=== PATIENT | male | born 1945 | race Caucasian/White ===

== ENCOUNTER 2017-02-03 18:43 | Inpatient (IN) | payer MEDICARE, OTHER ==
[~2017-02-03] VITALS: Ht 175.3 cm; Wt 70.2 kg
[2017-02-03 22:25] VITALS: BP 168/90; PULSE 76; RESP 18; TEMP 97.6; O2SAT 99
[2017-02-03] MEDS ORDERED: ALUMINUM/MAGNESIUM/SIMETH 30 ML CUP PO PRN (23:30)
[2017-02-03] MEDS ORDERED: ACETAMINOPHEN 325 MG TAB PO PRN (23:30)
[2017-02-03] MEDS ORDERED: LORazepam 2 MG/ML VIAL - age > 65 yrs IM PRN (23:30)
[2017-02-03] MEDS ORDERED: diphenhydrAMINE HCL 50 MG/ML VIAL IM PRN (23:30)
[2017-02-03] MEDS ORDERED: MAGNESIUM HYDROXIDE SUSP 30 ML CUP PO PRN (23:30)
[2017-02-03] MEDS ORDERED: LORazepam 0.5 MG TAB age > 65 yrs PO PRN (23:30)
[2017-02-03] MEDS ORDERED: diphenhydrAMINE HCL 25 MG CAP PO PRN ×2 (23:30)
[2017-02-03] MEDS ORDERED: diphenhydrAMINE HCL 50 MG/ML VIAL - HS PRN IM (23:30)
[2017-02-04 05:33] VITALS: BP 162/78; PULSE 77; RESP 18; TEMP 97.8; O2SAT 98
[2017-02-04 08:23] LABS: ANION GAP 5 MEQ/L (5-15); BICARBONATE 29.7 MEQ/L (21.0-32.0); BLOOD UREA NITROGEN 17 MG/DL (7-18); CHLORIDE 105 MEQ/L (98-107); GLOMERULAR FILTRATION RATE 121 ML/MIN (>89); SODIUM (NA) 140 MEQ/L (136-145)
[2017-02-04 08:27] LABS: HDL CHOLESTEROL 64.4 MG/DL (40.0-60.0); LDL CHOLESTEROL 78 MG/DL (0-99)
[2017-02-04] MEDS ORDERED: NICOTINE 21 MG/24 HR PATCH T-DERMAL SCH (09:00)
--- NOTE | 2017-02-04 10:36 | HHI.HP ---
Provisional Diagnosis Admission Date Feb 03, 2017 at 22:25 [place] I. 1. Major depressive disorder, single episode, severe with psychotic features Rule out depression due to general medical condition [place] II. Deferred Certification of Person's Competence To Provide Express and Informed Consent I have personally examined Jonathan Lopez , a person being served at [facility] on, Feb 04, 2017 10:35. Express and informed consent means consent voluntarily given in writing, by a competent person, after sufficient explanation and disclosure of the subject matter involved to enable the person to make a knowing and willful decision without any element of force, fraud, deceit, duress, or other form of constraint or coercion. This person is 18 years of age or older, is not now known to be incompetent to consent to treatment with a guardian advocate, and does not have a health care surrogate or proxy currently making medical treatment decisions. I have found this person to be one of the following: [x] Competent to provide express and informed consent, as defined above, for voluntary admission to this facility and is competent to provide express and informed consent for treatment. He/she has the consistent capacity to make well reasoned, willful, and knowing decisions concerning his or her medical or mental health treatment. The person fully and consistently understands the purpose of the admission for examination/placement and is fully capable of personally exercising all rights assured [place] Incompetent to provide express and informed consent to voluntary admission, and this is incompetent to provide express and informed consent to treatment. The person must be transferred to involuntary status and a petition for a guardian advocate filed with the Circuit Court. [] Refusing to provide express and informed consent to voluntary admission but is competent to provide express and informed consent for treatment. The person must be discharged or transferred to involuntary status. Form shall be completed within 24 hours of a person's arrival at the receiving facility and filed in the clinical record of each person: 1. Admitted on a voluntary basis 2. Permitted to provide express and informed consent to his/her own treatment 3. Allowed to transfer from involuntary to voluntary status 4. Prior to permitting a person to consent to his or her own treatment after having been previously found incompetent to consent to treatment. History of Present Illness Capacity: Has Capacity Psych Chief Complaint: Depression HPI Mr. Lopez is a 72-year-old male with no reported past psychiatric history who presents in transfer from [facility] under a [place] act. Documentation from outside hospital reviewed. From the ED providers note, it appears that the patient's daughter is concerned that the patient is having "a mental breakdown, he doesn't want to live anymore and he doesn't want my mom to live anymore." There is also allegation that the patient has been withholding medications from himself and his and not allowing caregivers into the home. Reviewing our electronic medical record, it appears this is patient's first visit to [place]. Patient seen and examined with counselor. Chart reviewed. Case discussed with nursing staff. On my examination today, patient reports that his fell ill with a stroke in July of this year. He notes that she had been having some premonitory symptoms before actually having her stroke, and he took her to doctors to try to figure out why she was having these symptoms without success. He says that he feels extremely guilty that he did not do more to prevent her stroke. The patient denies a history of psychiatric illness otherwise but admits that since the onset of her illness he has been feeling more depressed. He has been feeling hopeless and worthless. He has an experiencing poor sleep and poor appetite. He admits to some passive thoughts of and occasional suicidal ideation without specific plan. He does admit to entertaining the thought of hastening his own demise as well as his 's demise, but says that he simply pushes through when he has these thoughts. No hypomanic or manic symptoms currently, nor can I elicit any history of these. He denies any audiovisual hallucinations. He does describe some subtle paranoia when asked and also says that he believes that the television is "exaggerating things, calling things that are ugly pretty." There is significant mobilization of affect on this point, and he says that he does not like to discuss his psychotic symptoms. The remainder of the psychiatric ROS is negative. Past psychiatric history: The patient denies history of psychiatric diagnosis. He says that he underwent psychiatric assessment in November at his daughter's past but does not know if he was given a diagnosis. He denies any history of psychiatric admissions. He denies any history of suicide attempts. He denies any history of nonsuicidal self-injurious behavior. I do note from the medication reconciliation form from outside hospital that the patient has been on Paxil 10 mg daily. Family history: The patient reports that his mother had schizophrenia. He denies any family history of substance use disorder or suicide. Chemical dependency history: The patient endorses denies a history of abuse of drugs or alcohol. Social history: The patient has been 47 years. His daughter lives in [facility]. He has 2 grandchildren. 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 He served 4-1/2 years in the [employer] from [id number] but never saw combat. He had an honorable discharge. He denies any history of abuse or neglect. He denies any legal issues. He believes in God. No reported access to guns or firearms. Review of Systems ROS Limitations: Psychotic Except as stated in HPI: all other systems reviewed are Neg Past Psych History Psychological trauma history No reported trauma history to me Violence risk - others (6 mos) Concern for elevated risk due to neglect of 's care, see above Violence risk - self (6 mos) Concern for elevated risk. Depressed with suicidal ideation. Substance Abuse History Drugs/Alcohol past 12 months See above Past Family Social History Coded Allergies: No Known Allergies (Unverified , 02/03/17) Past Medical History Includes a history of hypertension Current Medications Medications (Trade) Dose Ordered Sig/Mathew Route Start Time Stop Time Status Last Admin (Ativan) 0.5 mg Q12H PRN PO 02/03/17 23:30 (Ativan Inj) 0.5 mg Q12H PRN IM 02/03/17 23:30 (Benadryl) 25 mg Q6H PRN PO 02/03/17 23:30 (Benadryl Inj) 25 mg Q6H PRN IM 02/03/17 23:30 (Benadryl) 25 mg HS PRN PO 02/03/17 23:30 (Benadryl Inj) 25 mg HS PRN IM 02/03/17 23:30 (Tylenol) 650 mg Q4H PRN PO 02/03/17 23:30 (Milk Of Magnesia Liq) 30 ml DAILY PRN PO 02/03/17 23:30 (Mag-Al Plus Susp Liq) 30 ml Q6H PRN PO 02/03/17 23:30 Patient's Strengths (min. 2) In a monitored setting. Verbally fluent. Physical Exam Physical examination completed by ED provider at outside hospital. On my examination today, the patient appears to be in no acute physical distress. No motor abnormalities noted. Labs and vitals reviewed: Vital Signs Vital Signs Date Time Temp Pulse Resp B/P (MAP) Pulse Ox O2 Delivery O2 Flow Rate FiO2 02/04/17 05:33 97.8 77 18 162/78 (106) 98 I/O 02/04/17 02/04/17 02/05/17 08:00 16:00 00:00 Intake Total 360 ml Balance 360 ml Lab Results Test 02/04/17 07:11 Blood Urea Nitrogen 17 MG/DL Creatinine 0.65 MG/DL Random Glucose 86 MG/DL Calcium Level 9.0 MG/DL Sodium Level 140 MEQ/L Potassium Level 4.0 MEQ/L Chloride Level 105 MEQ/L Carbon Dioxide Level 29.7 MEQ/L Anion Gap 5 MEQ/L Estimat Glomerular Filtration Rate 121 ML/MIN Triglycerides Level 100 MG/DL Cholesterol Level 162 MG/DL LDL Cholesterol 78 MG/DL HDL Cholesterol 64.4 MG/DL Cholesterol/HDL Ratio 2.51 RATIO Labs from outside hospital reviewed: CBC unremarkable Alcohol <10 CMP unremarkable UDS negative UA bland CXR no acute process TSH wnl Mental Status Examination Appearance: Appropriate, Other (in hospital attire) Consciousness: Alert Orientation: Person, Place, Date/Time (month/year) Motor Activity: Other (no motor abnormalities noted) Speech: Unremarkable Language: Adequate Fund of Knowledge: Adequate Attention and Concentration: Easily Distracted Memory: Unremarkable (registration 3 out of 3, recall 3 out of 3 at 3 minutes. Able to name 2 items and repeat a phrase. Able to spell world forwards and backwards without errors.) Mood: Other (depressed) Affect: Blunt Thought Process & Associations: Linear (somewhat slowed) Hallucination Type: None Delusion Type: Paranoid, Other (ideas of reference) Suicidal Ideation: Yes Suicidal Plan: No Suicidal Intention: No Homicidal Ideation: Yes (see above re: ) Homicidal Plan: No Homicidal Intention: No Insight: Poor Judgment: Poor Assessment & Plan Problem List: (1) Major depressive disorder, single episode, severe with psychotic features ICD Codes: F32.3 - Major depressive disorder, single episode, severe with psychotic features Assessment & Plan This is a 72-year-old male with psychiatric history as detailed above who presents in transfer from outside hospital under a [place] act. On my examination today, the patient describes depressive symptomatology with its onset following his 's stroke. He also endorses some psychotic symptoms, and I am concerned that he is experiencing a late-life psychotic depression, although general medical causes for this presentation will need to be closely ruled out. Particularly concerning in his presentation is the patient's report that he was thinking about hastening not only his own demise but also that of his . Patient requires psychiatric hospitalization for safety, observation and stabilization. Admit inpatient. Voluntary status. Check vitamin B12, vitamin D, RPR, ammonia and MRI of the brain with and without contrast to investigate potential medical causes for patient's current psychiatric symptoms. Titrate Paxil to 20 mg daily for mood. For symptoms of psychosis add Risperdal 0.25 mg twice daily. I discussed treatments and alternatives for patient's symptoms with the patient including the possibility of ECT for psychotic depression. Continue patient's antihypertensives, except that I have substituted lisinopril for benazepril as the former is on our formulary. Substitute Protonix for omeprazole. Consult to the hospitalist. PT/OT consult. Falls precautions. Vitals every shift. Counselor to see and obtain collateral. 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 Disposition planning. Estimated length of stay: 7-9 days. Discharge Planning Pending psychiatric stabilization Request HC Surrog/Guard Advoc?: No Roshan Muniz MD Feb 04, 2017 10:36
[2017-02-04] MEDS: ASPIRIN 325 MG TAB PO SCH (12:34)
[2017-02-04] MEDS: PANTOPRAZOLE SOD 40 MG DELAYED RELEASE TAB PO SCH (12:34)
[2017-02-04] MEDS: PARoxetine HCL 20 MG TAB PO SCH (12:34)
[2017-02-04] MEDS: LISINOPRIL 20 MG TAB PO SCH (12:35)
--- NOTE | 2017-02-04 16:11 | EKG ---
Date Performed: 02/04/2017 Time Performed: 12:39:15 PTAGE: 72 years EKG: Sinus rhythm WITH RARE VENTRICULAR PREMATURE COMPLEXES BORDERLINE ECG NO PREVIOUS TRACING DOCTOR: Jozef Roberto Interpretating Date/Time 02/04/2017 16:10:17
--- NOTE | 2017-02-04 16:38 | PD.CONS ---
HPI Service [facility] Hospitalists Consult Requested By Dr. Muniz Reason for Consult Hypertension Primary Care Physician Unknown Diagnoses: (1) Hypertension (2) Major depressive disorder, single episode, severe with psychotic features History of Present Illness Written by Rylee Cloud, acting as scribe for Dr. Singletary on 02/04/17 at 17:48. Mr. Lopez is a 72-year-old male patient with a known medical history of hypertension and depression who is in the psychiatry unit under [place] Act with depression and suicidal ideation. Hospitalist has been consulted for medical management of hypertension. Patient seen and examined in the psychiatry unit, sitting up in chair comfortably. States that he has a history of hypertension but has not checked it in a while and has not taken his medications, for no particular reason. Patient denies any recent illness including fever, chills, cough, shortness of breath, headache, chest pain, abdominal pain, n/v/d or dysuria. Review of Systems Constitutional: DENIES: Fever, Chills Endocrine: DENIES: Polydipsia, Polyuria Respiratory: DENIES: Cough, Shortness of breath Cardiovascular: DENIES: Chest pain, Dyspnea on Exertion Gastrointestinal: DENIES: Abdominal pain, Black stools, Constipation, Diarrhea , Nausea, Vomiting Psychiatric: COMPLAINS OF: Anxiety, Mood changes, Depression, Suicidal Ideation Except as stated in HPI: all other systems reviewed are Neg Past Family Social History Allergies: Coded Allergies: No Known Allergies (Unverified , 02/03/17) Past Medical History Hypertension Depression Past Surgical History Left hip replacement Back surgery Bilateral carpal tunnel Reported Medications Has not been taking them. Active Ordered Medications Current Medications Medications (Trade) Dose Ordered Sig/Mathew Route Start Time Stop Time Status Last Admin (Ativan) 0.5 mg Q12H PRN PO 02/03/17 23:30 (Ativan Inj) 0.5 mg Q12H PRN IM 02/03/17 23:30 (Benadryl) 25 mg Q6H PRN PO 02/03/17 23:30 (Benadryl Inj) 25 mg Q6H PRN IM 02/03/17 23:30 (Benadryl) 25 mg HS PRN PO 02/03/17 23:30 (Benadryl Inj) 25 mg HS PRN IM 02/03/17 23:30 (Tylenol) 650 mg Q4H PRN PO 02/03/17 23:30 (Milk Of Magnesia Liq) 30 ml DAILY PRN PO 02/03/17 23:30 (Mag-Al Plus Susp Liq) 30 ml Q6H PRN PO 02/03/17 23:30 (Paxil) 20 mg DAILY PO 02/04/17 11:00 02/04/17 12:34 (Norvasc) 10 mg DAILY PO 02/04/17 11:00 02/04/17 12:34 (Aspirin) 325 mg DAILY PO 02/04/17 11:00 02/04/17 12:34 (Protonix) 40 mg DAILY PO 02/04/17 11:00 02/04/17 12:34 (Coreg) 3.125 mg Q12HR PO 02/04/17 21:00 (Prinivil) 20 mg DAILY PO 02/04/17 11:00 02/04/17 12:35 (risperDAL) 0.25 mg Q12HR PO 02/04/17 21:00 Family History Maternal and paternal medical history significant for hypertension. Social History Denies any tobacco abuse. Denies any alcohol use. Denies any illicit drug use. Physical Exam Vital Signs Vital Signs Date Time Temp Pulse Resp B/P (MAP) Pulse Ox O2 Delivery O2 Flow Rate FiO2 02/04/17 05:33 97.8 77 18 162/78 (106) 98 02/03/17 22:25 97.6 76 18 168/90 (116) 99 Physical Exam GENERAL: This is a well-nourished, well-developed patient, sitting up in chair in no apparent distress. SKIN: No rashes, ecchymoses or lesions. Warm and dry. HEENT: Atraumatic. Normocephalic. Pupils equal round and reactive. Extraocular motions intact. No scleral icterus. No injection or drainage. Nose without bleeding. Airway patent. NECK: Trachea midline. No JVD. Supple. CARDIOVASCULAR: Regular rate and rhythm without murmurs, gallops, or rubs. RESPIRATORY: Clear to auscultation. Breath sounds equal bilaterally. No wheezes , rales, or rhonchi. GASTROINTESTINAL: Abdomen soft, non-tender, nondistended. No guarding. MUSCULOSKELETAL: Extremities without clubbing, cyanosis, or edema. No joint tenderness, effusion, or edema noted. NEUROLOGICAL: Awake and alert. Cranial nerves II through XII intact. Motor and sensory grossly within normal limits. Five out of 5 muscle strength in all muscle groups. Normal speech. Laboratory Laboratory Tests Test 02/04/17 07:11 02/04/17 14:00 Blood Urea Nitrogen 17 Creatinine 0.65 Random Glucose 86 Calcium Level 9.0 Sodium Level 140 Potassium Level 4.0 Chloride Level 105 Carbon Dioxide Level 29.7 Anion Gap 5 Estimat Glomerular Filtration Rate 121 Triglycerides Level 100 Cholesterol Level 162 LDL Cholesterol 78 HDL Cholesterol 64.4 Cholesterol/HDL Ratio 2.51 Ammonia 26 Vitamin B12 Level 686 25-Hydroxy Vitamin D Total 33.0 Result Diagram: 02/04/17 0711 Assessment and Plan Assessment and Plan Mr. Lopez is a 72-year-old male patient with a known medical history of hypertension and depression who is in the psychiatry unit under [employer] Act with depression and suicidal ideation. Hospitalist has been consulted for medical management of hypertension. Major depressive disorder - Management per psychiatry team. - Continue Paxil. - Primary team ordered for MRI brain. Follow results. Hypertension: Systolic BP's in the 160's. Restart home Lisinopril. Add Carvedilol and Norvasc. Continue aspirin. Monitor BP trends closely. EKG reviewed, NSR, no ischemic changes noted, no arrhythmias. GI Prophylaxis: Protonix. Labs reviewed, BMP unremarkable. Ammonia WNL. Vitamin B12 and D WNL. Thank you for this consult, will follow with you. This note was transcribed by scribe [[email or web address]]. I, Dr. Noelle Singletary personally performed the history, physical exam, and medical decision making; and confirmed the accuracy of the information in the transcribed note. Authenticated by Dr. Noelle Singletary on 02/04/17 at 17:48. Rylee Cloud Feb 04, 2017 16:38 Noelle Singletary MD Feb 04, 2017 23:48
[2017-02-04 17:20] LABS: HEMOGLOBIN A1b 0.6 %; HEMOGLOBIN Ao 86.5 %; HEMOGLOBIN F 1.3 %; HEMOGLOBIN LA1C 1.7 %; HEMOGLOBIN P3 3.4 %
[2017-02-04 18:00] VITALS: BP 122/76; PULSE 78; RESP 16; TEMP 97.6; O2SAT 97
[2017-02-04 19:43] VITALS: BP 130/78; PULSE 81; RESP 17; O2SAT 97
[2017-02-04] MEDS ORDERED: REMOVE OLD NICOTINE PATCH T-DERMAL SCH (21:00)
[2017-02-04] MEDS: CARVEDILOL 3.125 MG TAB PO SCH (21:02)
[2017-02-04] MEDS: risperiDONE 0.25 MG TAB PO SCH (21:02)
[2017-02-05 06:03] VITALS: BP 115/71; PULSE 77; RESP 18; TEMP 97.3; O2SAT 98
[2017-02-05] MEDS: CARVEDILOL 3.125 MG TAB PO SCH ×2 (09:30→21:00)
[2017-02-05] MEDS: LISINOPRIL 20 MG TAB PO SCH (09:30)
[2017-02-05] MEDS: risperiDONE 0.25 MG TAB PO SCH ×2 (09:30→21:05)
[2017-02-05] MEDS: PARoxetine HCL 20 MG TAB PO SCH (09:30)
[2017-02-05] MEDS: ASPIRIN 325 MG TAB PO SCH (09:30)
[2017-02-05] MEDS: PANTOPRAZOLE SOD 40 MG DELAYED RELEASE TAB PO SCH (09:30)
--- NOTE | 2017-02-05 11:33 | HHI.PYPN ---
Subjective Remarks Patient seen today in his room with counselor sylvia. Chart reviewed. Patient compliant medication. Patient continues tearful and depressed today. Continues to focus on his feelings of guilt related to the situation with his 's stroke or need for care and his difficulty with providing what he feels she needs. He states today that he would take the suicide pill if offered. He denies voices with this. Though he is somewhat vigilant. For now continue treatment no change. Will transfer patient 2600. I feel he would benefit from the structure in the milieu Chief Complaint: Depression Review of Systems Except as stated in HPI: all other systems reviewed are Neg Mental Status Examination Appearance: Appropriate, Other (in hospital attire) Consciousness: Alert Orientation: Person, Place, Date/Time (month/year) Motor Activity: Other (no motor abnormalities noted) Speech: Unremarkable Language: Adequate Fund of Knowledge: Adequate Attention and Concentration: Easily Distracted Memory: Unremarkable (registration 3 out of 3, recall 3 out of 3 at 3 minutes. Able to name 2 items and repeat a phrase. Able to spell world forwards and backwards without errors.) Mood: Other (depressed) Affect: Blunt Thought Process & Associations: Linear (somewhat slowed) Hallucination Type: None Delusion Type: Paranoid, Other (ideas of reference) Suicidal Ideation: Yes Suicidal Plan: No Suicidal Intention: No Homicidal Ideation: Yes (see above re: ) Homicidal Plan: No Homicidal Intention: No Insight: Poor Judgment: Poor Results Labs Test 02/04/17 14:00 Ammonia 26 MCMOL/L Vitamin B12 Level 686 PG/ML 25-Hydroxy Vitamin D Total 33.0 ng/ML Rapid Plasma Reagin NON-REACTIVE Vitals/IOs Vital Signs Date Time Temp Pulse Resp B/P (MAP) Pulse Ox O2 Delivery O2 Flow Rate FiO2 02/05/17 06:03 97.3 77 18 115/71 (86) 98 Intake and Output 02/05/17 02/05/17 02/06/17 08:00 16:00 00:00 Intake Total 240 ml Balance 240 ml Assessment & Plan Problem List: (1) Major depressive disorder, single episode, severe with psychotic features ICD Codes: F32.3 - Major depressive disorder, single episode, severe with psychotic features Assessment & Plan Estimated LOS: days patient remains quite depressed and tearful, compliant medications, though still suicidal with intent and acknowledgment that he would take the suicide pill if offered. We'll chested 2600 Justification for Cont. Inpt. At this time patient decompensate if placed in a lower level of care Discharge Planning Probable return to his home when stabilized Request HC Surrog/Guard Advoc?: No Tone Johansen MD Feb 05, 2017 11:33
[2017-02-05 15:31] VITALS: BP 109/83; PULSE 80; RESP 16; TEMP 98; O2SAT 99
[2017-02-06 05:35] VITALS: BP 99/68; PULSE 66; RESP 16; TEMP 97.9; O2SAT 97
[2017-02-06] MEDS: ASPIRIN 325 MG TAB PO SCH (08:56)
[2017-02-06] MEDS: CARVEDILOL 3.125 MG TAB PO SCH (08:56)
[2017-02-06] MEDS: PARoxetine HCL 20 MG TAB PO SCH (08:57)
[2017-02-06] MEDS: PANTOPRAZOLE SOD 40 MG DELAYED RELEASE TAB PO SCH (08:57)
[2017-02-06] MEDS: risperiDONE 0.25 MG TAB PO SCH (08:57)
[2017-02-06] MEDS: LISINOPRIL 20 MG TAB PO SCH (08:58)
[2017-02-06] MEDS ORDERED: ASPI325T PO (13:05)
[2017-02-06] MEDS ORDERED: LISI-515 PO (13:05)
[2017-02-06] MEDS ORDERED: RISP.25 PO (13:05)
[2017-02-06] MEDS ORDERED: PARO20TA2 PO (13:05)
[2017-02-06] MEDS ORDERED: METO25TA3 PO (13:05)
[2017-02-06] MEDS ORDERED: PANT40TA3 PO (13:05)
[2017-02-06] MEDS ORDERED: AMLO5 PO (13:05)
--- NOTE | 2017-02-06 13:10 | HHI.DS ---
Psychiatry Discharge Summary Inpatient Psychiatric care?: Yes Advance Directive: No Reason Not Provided: DOES NOT HAVE Mental Health AdvanceDirective: No Health Care Proxy: No Admission Admission Date Feb 03, 2017 at 22:25 Admission Diagnosis: (1) Major depressive disorder, single episode, severe with psychotic features ICD Code: F32.3 - Major depressive disorder, single episode, severe with psychotic features Brief History Mr. Lopez is a 72-year-old male with no reported past psychiatric history who presents in transfer from [facility] under a [place] act. Documentation from outside hospital reviewed. From the ED providers note, it appears that the patient's daughter is concerned that the patient is having "a mental breakdown, he doesn't want to live anymore and he doesn't want my mom to live anymore." There is also allegation that the patient has been withholding medications from himself and his and not allowing caregivers into the home. Reviewing our electronic medical record, it appears this is patient's first visit to [place]. Patient seen and examined with counselor. Chart reviewed. Case discussed with nursing staff. On my examination today, patient reports that his fell ill with a stroke in July of this year. He notes that she had been having some premonitory symptoms before actually having her stroke, and he took her to doctors to try to figure out why she was having these symptoms without success. He says that he feels extremely guilty that he did not do more to prevent her stroke. The patient denies a history of psychiatric illness otherwise but admits that since the onset of her illness he has been feeling more depressed. He has been feeling hopeless and worthless. He has an experiencing poor sleep and poor appetite. He admits to some passive thoughts of and occasional suicidal ideation without specific plan. He does admit to entertaining the thought of hastening his own demise as well as his 's demise, but says that he simply pushes through when he has these thoughts. No hypomanic or manic symptoms currently, nor can I elicit any history of these. He denies any audiovisual hallucinations. He does describe some subtle paranoia when asked and also says that he believes that the television is "exaggerating things, calling things that are ugly pretty." There is significant mobilization of affect on this point, and he says that he does not like to discuss his psychotic symptoms. The remainder of the psychiatric ROS is negative. Past psychiatric history: The patient denies history of psychiatric diagnosis. He says that he underwent psychiatric assessment in November at his daughter's past but does not know if he was given a diagnosis. He denies any history of psychiatric admissions. He denies any history of suicide attempts. He denies any history of nonsuicidal self-injurious behavior. I do note from the medication reconciliation form from outside hospital that the patient has been on Paxil 10 mg daily. Family history: The patient reports that his mother had schizophrenia. He denies any family history of substance use disorder or suicide. Chemical dependency history: The patient endorses denies a history of abuse of drugs or alcohol. Social history: The patient has been 47 years. His daughter lives in [facility]. He has 2 grandchildren. 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 He served 4-1/2 years in the [employer] from [id number] but never saw combat. He had an honorable discharge. He denies any history of abuse or neglect. He denies any legal issues. He believes in God. No reported access to guns or firearms. Tobacco Use In Past 30 Days: No Tobacco Past 30 Days Alcohol Use: Monthly or Less Hospital Course Patient's hospital course was uneventful, he adapted relatively to the milieu, show compliance with medications. Is suicidal ideation did resolve frustration with depression does live somewhat. They show compliance with medication. We also discussed the possibility of [facility] outpatient support groups. Patient seems somewhat excited about that. Patient does wish to be discharged today. At the present time he no longer meets criteria for inpatient psychiatric hospitalization. Thus will be discharged today to himself with Rx 1 month to follow-up with psychiatrist in [place], and to referred to our [facility] outpatient support groups Results Blood Pressure 99 / 68 Vital Signs Date Time Temp Pulse Resp B/P (MAP) Pulse Ox O2 Delivery O2 Flow Rate FiO2 02/06/17 05:35 97.9 66 16 99/68 (78) 97 Laboratory Tests Test 02/04/17 07:11 02/04/17 14:00 HDL Cholesterol 64.4 MG/DL (40.0-60.0) Laboratory Results Test 02/04/17 07:11 Cholesterol Level 162 MG/DL (120-200) HDL Cholesterol 64.4 MG/DL (40.0-60.0) Hemoglobin A1c 5.1 % (4.3-6.0) LDL Cholesterol 78 MG/DL (0-99) Triglycerides Level 100 MG/DL (42-150) Summary of Procedures None done Pending results at discharge: No Medications # of Antipsychotic meds at D/C: 1 Approp Antipsych med options 1 - Minimum of three failed multiple trials of monotherapy. 2 - Documented plan to taper to monotherapy due to previous use of multiple meds OR cross-taper in progress at D/C. 3 - Documentation of augmentation of Clozapine. 4 - Justification other than those listed in allowable values 1-3, document here : Discharge Discharge Date: Feb 06, 2017 Discharge Diagnosis: (1) Major depressive disorder, single episode, severe with psychotic features Diagnosis: Principal ICD Code: F32.3 - Major depressive disorder, single episode, severe with psychotic features Pt Condition on Discharge: Stable Discharge Disposition: Discharge Home Discharge Instructions Diet Instructions: As Tolerated, No Restrictions Activities you can perform: Regular-No Restrictions Scheduled Appointment: Private Psychiatrist (in [place], also referred to [facility] outpatient support groups) Discharge Time > 30 minutes Mental Status Examination Appearance: Appropriate, Other (in hospital attire) Consciousness: Alert Orientation: Person, Place, Date/Time (month/year) Motor Activity: Other (no motor abnormalities noted) Speech: Unremarkable Language: Adequate Fund of Knowledge: Adequate Attention and Concentration: Easily Distracted Memory: Unremarkable (registration 3 out of 3, recall 3 out of 3 at 3 minutes. Able to name 2 items and repeat a phrase. Able to spell world forwards and backwards without errors.) Mood: Other (depressed) Affect: Blunt Thought Process & Associations: Linear (somewhat slowed) Hallucination Type: None Delusion Type: Paranoid, Other (ideas of reference) Suicidal Ideation: Yes Suicidal Plan: No Suicidal Intention: No Homicidal Ideation: Yes (see above re: ) Homicidal Plan: No Homicidal Intention: No Insight: Poor Judgment: Poor Discharge/Advance Care Plan Health Problems: (1) Major depressive disorder, single episode, severe with psychotic features Goals to promote your health * To prevent worsening of your condition and complications * To maintain your health at the optimal level Directions to meet your goals Take your medications as prescribed Follow your dietary instruction Follow activity as directed Keep your appointments as scheduled Take your immunizations and boosters as scheduled If your symptoms worsen call your PCP, if no PCP go to Urgent Care Center or Emergency Room For 18/11 questions related to your inpatient stay or results of tests pending at discharge, please contact Dr. Tone Johansen at Smoking is Dangerous to Your Health. Avoid second hand smoking Tone Johansen MD Feb 06, 2017 13:10
[2017-02-06 13:45] VITALS: BP 104/58; PULSE 63
--- NOTE | 2017-02-06 14:03 | HHI.PR ---
Subjective Remarks denied c/o , no dizziness or lightheaded bp on the lower side we will dec norvasc Objective Vitals Vital Signs Date Time Temp Pulse Resp B/P (MAP) Pulse Ox O2 Delivery O2 Flow Rate FiO2 02/06/17 13:45 63 104/58 (73) 02/06/17 05:35 97.9 66 16 99/68 (78) 97 02/05/17 15:31 98.0 80 16 109/83 (92) 99 I/O 02/05/17 02/05/17 02/05/17 02/06/17 02/06/17 02/06/17 07:00 15:00 23:00 07:00 15:00 23:00 Intake Total 0 ml 480 ml 360 ml Balance 0 ml 480 ml 360 ml Intake Oral 0 ml 480 ml 360 ml # Voids 2 Result Diagram: 02/04/17 0711 Objective Remarks GENERAL: This is a well-nourished, well-developed patient, in no apparent distress. CARDIOVASCULAR: Regular rate and rhythm without murmurs, gallops, or rubs. RESPIRATORY: Clear to auscultation. Breath sounds equal bilaterally. No wheezes , rales, or rhonchi. GASTROINTESTINAL: Abdomen soft, non-tender, nondistended. Normal active bowel sounds MUSCULOSKELETAL: Extremities without clubbing, cyanosis, or edema. NEURO: Alert & Oriented x4 to person, place, time, situation. Moves all ext x4 A/P Problem List: (1) Hypertension ICD Code: I10 - Essential (primary) hypertension (2) Major depressive disorder, single episode, severe with psychotic features ICD Code: F32.3 - Major depressive disorder, single episode, severe with psychotic features Assessment and Plan Mr. Lopez is a 72-year-old male patient with a known medical history of hypertension and depression who is in the psychiatry unit under [place] Act with depression and suicidal ideation. Hospitalist has been consulted for medical management of hypertension. Major depressive disorder - Management per psychiatry team. - Continue Paxil. - Primary team ordered for MRI brain. Follow results. Hypertension: now with lower reading , reduce norvasc to 5 mg qd.cont home Lisinopril. change Carvedilol to lopressor. Continue aspirin. Monitor BP trends closely. EKG reviewed, NSR, no ischemic changes noted, no arrhythmias. GI Prophylaxis: Protonix. Labs reviewed, BMP unremarkable. Ammonia WNL. Vitamin B12 and D WNL. medically clear for dc Noelle Singletary MD Feb 06, 2017 14:03
[2017-02-06 14:21] VITALS: BP_SYST 111; BP_SYST 92; BP_DIAS 55; BP_DIAS 58; PULSE 70; PULSE 75
[2017-02-06] MEDS ORDERED: METOPROLOL TARTRATE 25 MG TAB PO SCH (21:00)
[2017-02-07] MEDS ORDERED: amLODIPine BESYLATE 5 MG TAB PO SCH (09:00)
== END 2017-02-06 19:50 | disposition home or self-care (01) | DRG 885 ==
LOC: H250 22:25 → H260 02-05 14:00
PROVIDERS: ADMIT Psychiatry & Neurology Psychiatry; ATTEND Psychiatry & Neurology Psychiatry
DX: F32.3 Major depressive disorder, single episode, severe with psychotic features (principal); R45.851 Suicidal ideations; I10 Essential (primary) hypertension; Z96.642 Presence of left artificial hip joint; Z81.8 Family history of other mental and behavioral disorders
CPT/HCPCS: 80048; 80061; 82140; 82306; 82607; 83036; 86592; 93005

== ENCOUNTER 2017-02-10 21:25 | Inpatient (IN) | payer MEDICARE, OTHER ==
[~2017-02-10 21:25] MED LIST: AMLO5 PO; ASPI325T PO; LISI-515 PO; METO25TA3 PO; PANT40TA3 PO; PARO20TA2 PO; RISP.25 PO
[2017-02-10] MEDS ORDERED: diphenhydrAMINE HCL 25 MG CAP PO PRN (23:00)
[2017-02-10] MEDS ORDERED: diphenhydrAMINE HCL 50 MG/ML VIAL IM PRN (23:00)
[2017-02-10 23:12] VITALS: BP 131/65; PULSE 72; RESP 18; TEMP 98; O2SAT 97
[2017-02-10] MEDS ORDERED: ACETAMINOPHEN 325 MG TAB PO PRN (23:15)
[2017-02-10] MEDS ORDERED: ALUMINUM/MAGNESIUM/SIMETH 30 ML CUP PO PRN (23:15)
[2017-02-10] MEDS ORDERED: MAGNESIUM HYDROXIDE SUSP 30 ML CUP PO PRN (23:15)
[2017-02-11 06:00] VITALS: BP 126/77; PULSE 82; RESP 18; TEMP 97.3; O2SAT 98
[2017-02-11] MEDS: PNEUMOCOCCAL POLYVALENT INJ 25 MCG/0.5 ML SYR IM ONE (09:00)
[2017-02-11] MEDS: INFLUENZA VIRUS VACCINE (QUADRIVALENT) 0.5 ML SYR IM ONE ×2 (09:00→16:44)
[2017-02-11] MEDS ORDERED: ALUMINUM/MAGNESIUM/SIMETH 30 ML CUP PO PRN (10:00)
[2017-02-11] MEDS ORDERED: ACETAMINOPHEN 325 MG TAB PO PRN (10:00)
[2017-02-11] MEDS ORDERED: LORazepam 1 MG TAB PO PRN (10:00)
[2017-02-11] MEDS ORDERED: MAGNESIUM HYDROXIDE SUSP 30 ML CUP PO PRN (10:00)
[2017-02-11] MEDS ORDERED: LORazepam 2 MG/ML VIAL IM PRN (10:00)
--- NOTE | 2017-02-11 10:21 | HHI.HP ---
Provisional Diagnosis Admission Date Feb 10, 2017 at 22:50 [place] I. Major depressive disorder single episode severe with psychotic features f 32.3 Certification of Person's Competence To Provide Express and Informed Consent I have personally examined Jonathan Lopez , a person being served at [facility] on, Feb 11, 2017 10:02. Express and informed consent means consent voluntarily given in writing, by a competent person, after sufficient explanation and disclosure of the subject matter involved to enable the person to make a knowing and willful decision without any element of force, fraud, deceit, duress, or other form of constraint or coercion. This person is 18 years of age or older, is not now known to be incompetent to consent to treatment with a guardian advocate, and does not have a health care surrogate or proxy currently making medical treatment decisions. I have found this person to be one of the following: [] Competent to provide express and informed consent, as defined above, for voluntary admission to this facility and is competent to provide express and informed consent for treatment. He/she has the consistent capacity to make well reasoned, willful, and knowing decisions concerning his or her medical or mental health treatment. The person fully and consistently understands the purpose of the admission for examination/placement and is fully capable of personally exercising all rights assured [place] [] Incompetent to provide express and informed consent to voluntary admission, and this is incompetent to provide express and informed consent to treatment. The person must be transferred to involuntary status and a petition for a guardian advocate filed with the Circuit Court. [xxx] Refusing to provide express and informed consent to voluntary admission but is competent to provide express and informed consent for treatment. The person must be discharged or transferred to involuntary status. Form shall be completed within 24 hours of a person's arrival at the receiving facility and filed in the clinical record of each person: 1. Admitted on a voluntary basis 2. Permitted to provide express and informed consent to his/her own treatment 3. Allowed to transfer from involuntary to voluntary status 4. Prior to permitting a person to consent to his or her own treatment after having been previously found incompetent to consent to treatment. History of Present Illness Capacity: Lacks Capacity (patient lacks capacity to sign for admission, patient has capacity to sign for medication) Psych Chief Complaint: patient depressed with homicidal and suicidal ideation HPI Patient is a 72-year-old white male known to me from prior hospitalization here at [facility]. Patient was hospitalized 02/03/17 through 02/06/17 under . The depressive symptoms at that time were related to the stress of his caring for his who has significant issues with cancer and relationship with his daughter. Patient comes to this time under L[place] act signed by [facility] [employer] dated 02/10/17 at 1517 hrs. that document reviewed. It is essentially stating that the patrol police lieutenant make contact with Jonathan Goldberg and his daughter Maegan. When speaking to Maegan she advised me that her father was experiencing severe depression in the last few weeks and appeared to have a deteriorating mental status. Maegan also stated that her father Jonathan has made several statements about wanting to kill people. Maegan also stated that she has observed Jonathan taking large knives out of the kitchen and when confronted about the knives see attempts to hide them places him back in the kitchen. On 02/10/17 Maegan observed Jonathan with a private bar in his hands which was wrapped in a towel in the home. When confronted him about the tools he began walking towards her without speaking. When speaking with Jonathan about the incident he did not recall his actions and simply stated "I'm crazy" patient seen screened in the ED. There is no laboratory testing ordered at that time. At the present time patient sitting quietly in his room patient seen with counselor Ayan and nurse Shaista. Patient did recognize me from prior contact. He stated his depression increased with his discharge. And the increasing depression sad mood, but also increased anger and frustration focusing on his and daughter. Also focusing on his hopelessness and helplessness and frustration with the entire situation. He did acknowledge thoughts of harming his family and himself with the knives her with a crowbar. He does acknowledge having is somewhat short tempered as a young adult. He denies any prior suicidal homicidal ideation intent or plan. He is vague about his compliance with medication upon prior discharge. We did discuss medications. We will discontinue his prior psychotropics and offer him Zoloft 25 mg a.m. and Seroquel small doses during the day and is somewhat larger dose at bedtime. We need to contact patient's family to discuss this with them and discuss discharge plans concerning the aggressive nature of his behaviors Review of Systems Constitutional: DENIES: Diaphoretic episodes, Fatigue, Fever, Weight gain, Weight loss, Chills, Dizziness, Change in appetite, Night Sweats Endocrine: DENIES: Heat/cold intolerance, Polydipsia, Polyuria, Polyphagia Eyes: DENIES: Blurred vision, Diplopia, Eye inflammation, Eye pain, Vision loss , Photosensitivity, Double Vision Ears, nose, mouth, throat: DENIES: Tinnitus, Hearing loss, Vertigo, Nasal discharge, Oral lesions, Throat pain, Hoarseness, Ear Pain, Running Nose, Epistaxis, Sinus Pain, Toothache, Odynophagia Respiratory: DENIES: Apneas, Cough, Snoring, Wheezing, Hemoptysis, Sputum production, Shortness of breath Cardiovascular: DENIES: Chest pain, Palpitations, Syncope, Dyspnea on Exertion , PND, Lower Extremity Edema, Orthopnea, Claudication Gastrointestinal: DENIES: Abdominal pain, Black stools, Bloody stools, Constipation, Diarrhea, Nausea, Vomiting, Difficulty Swallowing, Anorexia Genitourinary: DENIES: Sexual dysfunction, Urinary frequency, Urinary incontinence, Urgency, Hematuria, Dysuria, Nocturia, Penile Discharge, Testicular Pain, Testicular Swelling Musculoskeletal: DENIES: Joint pain, Muscle aches, Stiffness, Joint Swelling, Back pain, Neck pain Integumentary: DENIES: Abnormal pigmentation, Nail changes, Pruritus, Rash Hematologic/lymphatic: DENIES: Bruising, Lymphadenopathy Immunologic/allergic: DENIES: Eczema, Urticaria Neurologic: DENIES: Abnormal gait, Headache, Localized weakness, Paresthesias, Seizures, Speech Problems, Tremor, Poor Balance Psychiatric: COMPLAINS OF: Anxiety, Mood changes, Depression, Agitation, Suicidal Ideation, Homicidal Ideation Past Psych History Psychological trauma history Denies Violence risk - others (6 mos) Patient made threatening statements and gestures towards family Violence risk - self (6 mos) Patient made statements about harming self Substance Abuse History Drugs/Alcohol past 12 months Denies Past Family Social History Coded Allergies: No Known Allergies (Unverified , 02/03/17) Past Medical History Patient medically cleared ED Active Scripts Risperidone (Risperdal) 0.25 Mg Tab, 0.25 MG PO Q12HR for health, #30 TAB 0 Refills Prov:Tone Johansen MD 02/06/17 Paroxetine (Paroxetine) 20 Mg Tab, 20 MG PO DAILY for health, #30 TAB 0 Refills Prov:Tone Johansen MD 02/06/17 Pantoprazole (Pantoprazole) 40 Mg Tab, 40 MG PO DAILY for health, #30 TAB 0 Refills Prov:Tone Johansen MD 02/06/17 Metoprolol Tartrate (Metoprolol Tartrate) 25 Mg Tab, 25 MG PO Q12HR for health, #30 TAB 0 Refills Prov:Tone Johansen MD 02/06/17 Lisinopril (Lisinopril) 20 Mg Tab, 20 MG PO DAILY for health, #30 TAB 0 Refills Prov:Tone Johansen MD 02/06/17 Aspirin (Aspirin) 325 Mg Tab, 325 MG PO DAILY for health, #30 TAB 0 Refills Prov:Tone Johansen MD 02/06/17 Amlodipine (Norvasc) 5 Mg Tab, 5 MG PO DAILY for health, #30 TAB 0 Refills Prov:Tone Johansen MD 02/06/17 Current Medications Medications (Trade) Dose Ordered Sig/Mathew Route Start Time Stop Time Status Last Admin (Benadryl) 25 mg Q6H PRN PO 02/10/17 23:00 (Benadryl Inj) 25 mg Q6H PRN IM 02/10/17 23:00 (Tylenol) 650 mg Q4H PRN PO 02/10/17 23:15 (Milk Of Magnesia Liq) 30 ml DAILY PRN PO 02/10/17 23:15 (Mag-Al Plus Susp Liq) 30 ml Q6H PRN PO 02/10/17 23:15 (Coreg) 3.125 mg Q12HR PO 02/11/17 09:00 (Norvasc) 10 mg DAILY PO 02/11/17 09:00 (Aspirin) 325 mg DAILY PO 02/11/17 09:00 (Protonix) 40 mg DAILY PO 02/11/17 09:00 (Prinivil) 20 mg DAILY PO 02/11/17 09:00 Family Psych History Denies Social History Patient lives with who has cancer, is closely ship also with his daughter who now lives with them Patient's Strengths (min. 2) Patient verbal labile access healthcare Physical Exam Patient seen screened in the ED medically cleared. At the present time patient sitting quietly in chair in his room with staff present as mentioned above. Is in no acute distress. He is in no respiratory distress. No complaints of abdominal pain. Patient moves all 4 extremities without difficulty. There are no abnormal motor movements noted Vital Signs Vital Signs Date Time Temp Pulse Resp B/P (MAP) Pulse Ox O2 Delivery O2 Flow Rate FiO2 02/11/17 06:00 97.3 82 18 126/77 (93) 98 I/O 02/11/17 02/11/17 02/11/17 07:59 15:59 23:59 Intake Total 120 ml Balance 120 ml Mental Status Examination Appearance: Appropriate Consciousness: Alert Orientation: x4 Motor Activity: Normal gait Speech: Unremarkable, Hesitant (slightly), Slow Language: Adequate Fund of Knowledge: Adequate Attention and Concentration: Adequate Memory: Unremarkable Mood: Angry (subtle), Sad Affect: Other (decrease range increase intensity) Thought Process & Associations: Intact Thought Content: Bizarre thinking Hallucination Type: None Delusion Type: None Suicidal Ideation: Yes Suicidal Plan: Yes (patient quite vague) Suicidal Intention: Yes (vague) Homicidal Ideation: Yes Homicidal Plan: Yes (vague) Homicidal Intention: Yes (vague) Insight: Poor Judgment: Poor Assessment & Plan Problem List: (1) Major depressive disorder, single episode, severe with psychotic features ICD Codes: F32.3 - Major depressive disorder, single episode, severe with psychotic features Assessment & Plan Estimated LOS: days patient remains quite depressed with suicidal/homicidal ideation. Is also psychotic paranoid flavor related to this. She medication adjustments above. At this time patient does meet criteria for involuntary psychiatric hospitalization thus I'll do first opinion request second opinion. I feel he does have capacity to sign for his medications Discharge Planning Placement independent patient's response to medications and treatment Request HC Surrog/Guard Advoc?: No Tone Johansen MD Feb 11, 2017 10:21
[2017-02-11] MEDS ORDERED: PILL SPLITTER OTHER PRN (10:45)
[2017-02-11] MEDS: LISINOPRIL 20 MG TAB PO SCH (12:02)
[2017-02-11] MEDS: CARVEDILOL 3.125 MG TAB PO SCH ×2 (12:02→21:26)
[2017-02-11] MEDS: ASPIRIN 325 MG TAB PO SCH (12:03)
[2017-02-11] MEDS: PANTOPRAZOLE SOD 40 MG DELAYED RELEASE TAB PO SCH (12:03)
[2017-02-11] MEDS: SERTRALINE HCL 50 MG TAB PO SCH (12:05)
[2017-02-11] MEDS ORDERED: DOCUSATE SODIUM 100 MG CAP PO ONE (15:30)
[2017-02-11] MEDS ORDERED: LACTULOSE SYRUP 20 GM/30 ML CUP PO PRN (15:30)
--- NOTE | 2017-02-11 15:38 | PD.CONS ---
HPI Service [facility] Consult Requested By Primary Care Physician Non-Staff Diagnoses: History of Present Illness Mr. Lara is a 72-year-old male. Consult placed for medical management. I discussed this patient's past medical history with him. He has hypertension and constipation at baseline. He has been admitted here under psychiatric care for major depression. Surgeries include spinal fusion with cage and left hip replacement surgery. She denies any substance abuse including nicotine, alcohol , or illicit drugs. He says it's been about 3-4 days since his last bowel movement and he is getting symptoms of constipation. No other complaints at this time. Blood pressures under good control. Review of Systems Constitutional: DENIES: Diaphoretic episodes, Fatigue, Fever, Chills, Night Sweats Endocrine: DENIES: Heat/cold intolerance, Polydipsia, Polyuria, Polyphagia Eyes: DENIES: Blurred vision, Diplopia, Eye inflammation, Eye pain Ears, nose, mouth, throat: DENIES: Tinnitus, Hearing loss, Vertigo, Nasal discharge Respiratory: DENIES: Apneas, Cough, Snoring, Wheezing Cardiovascular: DENIES: Chest pain, Palpitations, Syncope Gastrointestinal: COMPLAINS OF: Constipation, DENIES: Abdominal pain, Black stools, Bloody stools Genitourinary: DENIES: Urinary frequency, Urinary incontinence, Dysuria Musculoskeletal: DENIES: Joint pain, Muscle aches, Stiffness, Joint Swelling Integumentary: DENIES: Abnormal pigmentation, Nail changes, Pruritus, Rash Hematologic/lymphatic: DENIES: Bruising, Lymphadenopathy Immunologic/allergic: DENIES: Eczema, Urticaria Neurologic: DENIES: Abnormal gait, Headache, Paresthesias Psychiatric: COMPLAINS OF: Depression Past Family Social History Allergies: Coded Allergies: No Known Allergies (Unverified , 02/03/17) Past Medical History Hypertension Constipation Past Surgical History Back surgery (spinal fusion with cage) Hip surgery, joint replacement at left Reported Medications Reported Meds & Active Scripts Active Risperdal (Risperidone) 0.25 Mg Tab 0.25 Mg PO Q12HR Paroxetine (Paroxetine HCl) 20 Mg Tab 20 Mg PO DAILY Pantoprazole (Pantoprazole Sodium) 40 Mg Tab 40 Mg PO DAILY Metoprolol Tartrate 25 Mg Tab 25 Mg PO Q12HR Lisinopril 20 Mg Tab 20 Mg PO DAILY Aspirin 325 Mg Tab 325 Mg PO DAILY Norvasc (Amlodipine Besylate) 5 Mg Tab 5 Mg PO DAILY Active Ordered Medications Administered Medications Medications (Trade) Dose Ordered Sig/Mathew Route PRN Reason Start Time Stop Time Status Last Admin Dose Admin Carvedilol (Coreg) 3.125 mg Q12HR PO 02/11/17 09:00 02/11/17 12:02 Aspirin (Aspirin) 325 mg DAILY PO 02/11/17 09:00 02/11/17 12:03 Pantoprazole Sodium (Protonix) 40 mg DAILY PO 02/11/17 09:00 02/11/17 12:03 Lisinopril (Prinivil) 20 mg DAILY PO 02/11/17 09:00 02/11/17 12:02 Sertraline HCl (Zoloft) 25 mg DAILY PO 02/11/17 10:30 02/11/17 12:05 Family History Coronary artery disease and hypertension in patient's mother and father Social History No smoking history No illicit drug abuse history No alcohol abuse history Physical Exam Vital Signs Vital Signs Date Time Temp Pulse Resp B/P (MAP) Pulse Ox O2 Delivery O2 Flow Rate FiO2 02/11/17 06:00 97.3 82 18 126/77 (93) 98 02/10/17 23:12 98.0 72 18 131/65 (87) 97 Physical Exam GENERAL: NAD, A&Ox3 HEAD: Normocephalic. NECK: Supple, trachea midline. No lymphadenopathy. EYES: No scleral icterus. No injection or drainage. CARDIOVASCULAR: Regular rate and rhythm without murmurs, gallops, or rubs. RESPIRATORY: Breath sounds equal bilaterally. No accessory muscle use. GASTROINTESTINAL: Abdomen soft, non-tender, nondistended. MUSCULOSKELETAL: No cyanosis, or edema. SKIN: Warm and dry. NEURO: No focal neurological deficitis. Assessment and Plan Problem List: (1) Hypertension ICD Code: I10 - Essential (primary) hypertension (2) Major depressive disorder, single episode, severe with psychotic features ICD Code: F32.3 - Major depressive disorder, single episode, severe with psychotic features Assessment and Plan Assessment and plan 72 year-old male admitted secondary to major depression with complaint of constipation Major depression Continue management per psychiatry Constipation Begin twice a day Colace Twice a day laxatives as needed Monitor for bowel movements Hypertension Well-controlled No change to baseline treatment Continue to monitor blood pressures DVT prophylaxis Patient is ambulatory, no treatment needed Solomon Jhaveri MD Feb 11, 2017 15:38
--- NOTE | 2017-02-11 17:04 | PD.PSY.CON ---
Provisional Diagnosis Admission Date Feb 10, 2017 at 22:50 [place]. Major depressive disorder single episode severe with psychotic features f 32.3 History of Present Illness Service Psychiatry Consult Requested By Dr. Tone Johansen Reason for Consult Second opinion Primary Care Physician Non-Staff HPI Patient is a 72-year-old white male [facility]. Patient was hospitalized 02/03/17 through 02/06/17 under . The depressive symptoms at that time were related to the stress of his caring for his who has significant issues with cancer and relationship with his daughter. Patient comes to this time under [place] act signed by [facility] dated 02/10/17 at 1517 hrs. that document reviewed. It is essentially stating that the police cadet make contact with Jonathan Goldberg and his daughter Maegan. When speaking to Maegan she advised me that her father was experiencing severe depression in the last few weeks and appeared to have a deteriorating mental status. Maegan also stated that her father Jonathan has made several statements about wanting to kill people. Maegan also stated that she has observed Jonathan taking large knives out of the kitchen and when confronted about the knives see attempts to hide them places him back in the kitchen. On 02/10/17 Maegan observed Jonathan with a private bar in his hands which was wrapped in a towel in the home. When confronted him about the tools he began walking towards her without speaking. When speaking with Jonathan about the incident he did not recall his actions and simply stated "I'm crazy" patient seen screened in the ED. There is no laboratory testing ordered at that time. At the present time patient sitting quietly in his room patient seen with counselor Ayan and nurse Shaista. Patient did recognize me from prior contact. He stated his depression increased with his discharge. And the increasing depression sad mood, but also increased anger and frustration focusing on his and daughter. Also focusing on his hopelessness and helplessness and frustration with the entire situation. He did acknowledge thoughts of harming his family and himself with the knives her with a crowbar. He does acknowledge having is somewhat short tempered as a young adult. He denies any prior suicidal homicidal ideation intent or plan. He is vague about his compliance with medication upon prior discharge. We did discuss medications. We will discontinue his prior psychotropics and offer him Zoloft 25 mg a.m. and Seroquel small doses during the day and is somewhat larger dose at bedtime. We need to contact patient's family to discuss this with them and discuss discharge plans concerning the aggressive nature of his behaviors 02/11/17 Patient is a 72-year-old man, , domiciled with daughter and , past psychiatric history of major depressive disorder, with previous psychiatric admissions, no previous suicide attempts of self-interest behavior was recently discharged from psychiatric unit but was brought into the ER due to continued depression as well as suicidal homicidal ideations toward his family. Patient was found sitting in hospital bed, cooperative interview today although noted to be somewhat guarded. Patient states that he is here back in the hospital because his daughter felt he was becoming dangerous to himself and others. He reports feeling depressed and having acted strangely for the past few weeks referring to him playing with knives and tools, "playing with them like I was going to hurt them". Patient states that he felt angry but could not bring himself to hurt them but did have had these thoughts for the past month. Patient reports significant stressor earlier this year back in August when his suffered a stroke which she became the primary dairy frozen manager. Patient reports the past couple of weeks decreased sleep, energy, concentration, appetite being "on and off", feelings of guilt, feeling depressed along with feeling hopeless and helpless. Patient reports having suicidal ideation since August but worsening recently. Patient states the last time he has was ideations was earlier this morning. Patient reports not having a plan but had thought of methods such as driving off a bridge. Patient reports having a recent discharge from psychiatric unit about one week ago. Patient at this time reports feeling "down" denies any SI or HI at this time but did report having some auditory hallucinations sometimes but did not want to elaborate. Past Family Social History Coded Allergies: No Known Allergies (Unverified , 02/03/17) Active Scripts Risperidone (Risperdal) 0.25 Mg Tab, 0.25 MG PO Q12HR for health, #30 TAB 0 Refills Prov:Tone Johansen MD 02/06/17 Paroxetine (Paroxetine) 20 Mg Tab, 20 MG PO DAILY for health, #30 TAB 0 Refills Prov:Tone Johansen MD 02/06/17 Pantoprazole (Pantoprazole) 40 Mg Tab, 40 MG PO DAILY for health, #30 TAB 0 Refills Prov:Tone Johansen MD 02/06/17 Metoprolol Tartrate (Metoprolol Tartrate) 25 Mg Tab, 25 MG PO Q12HR for health, #30 TAB 0 Refills Prov:Tone Johansen MD 02/06/17 Lisinopril (Lisinopril) 20 Mg Tab, 20 MG PO DAILY for health, #30 TAB 0 Refills Prov:Tone Johansen MD 02/06/17 Aspirin (Aspirin) 325 Mg Tab, 325 MG PO DAILY for health, #30 TAB 0 Refills Prov:Tone Johansen MD 02/06/17 Amlodipine (Norvasc) 5 Mg Tab, 5 MG PO DAILY for health, #30 TAB 0 Refills Prov:Tone Johansen MD 02/06/17 Current Medications Medications (Trade) Dose Ordered Sig/Mathew Route Start Time Stop Time Status Last Admin (Coreg) 3.125 mg Q12HR PO 02/11/17 09:00 02/11/17 12:02 (Aspirin) 325 mg DAILY PO 02/11/17 09:00 02/11/17 12:03 (Protonix) 40 mg DAILY PO 02/11/17 09:00 02/11/17 12:03 (Prinivil) 20 mg DAILY PO 02/11/17 09:00 02/11/17 12:02 (Ativan) 1 mg Q6H PRN PO 02/11/17 10:00 (Ativan Inj) 1 mg Q6H PRN IM 02/11/17 10:00 (Benadryl) 50 mg HS PRN PO 02/11/17 10:00 (Tylenol) 650 mg Q4H PRN PO 02/11/17 10:00 (Mag-Al Plus Susp Liq) 30 ml Q6H PRN PO 02/11/17 10:00 (Norvasc) 5 mg DAILY PO 02/12/17 09:00 (Lopressor) 25 mg Q12HR PO 02/11/17 21:00 (Zoloft) 25 mg DAILY PO 02/11/17 10:30 02/11/17 12:05 (SEROquel) 100 mg HS PO 02/11/17 21:00 (Pill Splitter) 1 ea UNSCH PRN OTHER 02/11/17 10:45 (Colace) 100 mg BID PO 02/11/17 21:00 (Lactulose Liq) 30 ml BID PRN PO 02/11/17 15:30 Patient's Strengths (min. 2) Patient verbal labile access healthcare Physical Exam Vital Signs Vital Signs Date Time Temp Pulse Resp B/P (MAP) Pulse Ox O2 Delivery O2 Flow Rate FiO2 02/11/17 06:00 97.3 82 18 126/77 (93) 98 I/O 02/11/17 02/11/17 02/12/17 08:00 16:00 00:00 Intake Total 120 ml 720 ml Balance 120 ml 720 ml Mental Status Examination Appearance: Appropriate Consciousness: Alert Orientation: x4 Motor Activity: Normal gait Speech: Hesitant (slightly), Slow Language: Adequate Fund of Knowledge: Adequate Attention and Concentration: Adequate Memory: Unremarkable Mood: Angry (subtle), Sad Affect: Other (restricted and guarded) Thought Process & Associations: Intact Thought Content: Bizarre thinking Hallucination Type: None Delusion Type: None Suicidal Ideation: Yes Suicidal Plan: Yes (patient quite vague) Suicidal Intention: Yes (vague) Homicidal Ideation: Yes Homicidal Plan: Yes (vague) Homicidal Intention: Yes (vague) Insight: Poor Judgment: Poor Assessment & Plan Problem List: (1) Major depressive disorder, single episode, severe with psychotic features ICD Codes: F32.3 - Major depressive disorder, single episode, severe with psychotic features Assessment & Plan Patient was seen for second opinion. Patient was evaluated by typewriter repairer, documentation reviewed and case discussed with Dr. Johansen I completely agree and concur with Dr. Johansen's assessment and plan. Consult appreciated. Request HC Surrog/Guard Advoc?: Adrian Crenshaw MD Feb 11, 2017 17:04
[2017-02-11 18:52] VITALS: BP 127/75; PULSE 74; RESP 18; TEMP 97.7; O2SAT 99
[2017-02-11] MEDS: QUEtiapine FUMARATE 100 MG TAB PO SCH (21:26)
[2017-02-11] MEDS: DOCUSATE SODIUM 100 MG CAP PO SCH (21:26)
[2017-02-11] MEDS: METOPROLOL TARTRATE 25 MG TAB PO SCH (21:26)
[2017-02-12 05:57] VITALS: BP 90/50; PULSE 79; RESP 16; TEMP 97.6; O2SAT 99
[2017-02-12] MEDS ORDERED: PANTOPRAZOLE SOD 40 MG DELAYED RELEASE TAB PO SCH (09:00)
[2017-02-12] MEDS: METOPROLOL TARTRATE 25 MG TAB PO SCH ×2 (09:00→20:54)
[2017-02-12] MEDS: LISINOPRIL 20 MG TAB PO SCH (09:00)
[2017-02-12] MEDS: amLODIPine BESYLATE 5 MG TAB PO SCH (09:00)
[2017-02-12] MEDS ORDERED: LISINOPRIL 20 MG TAB PO SCH (09:00)
[2017-02-12] MEDS ORDERED: ASPIRIN 325 MG TAB PO SCH (09:00)
[2017-02-12] MEDS: CARVEDILOL 3.125 MG TAB PO SCH ×2 (09:00→20:54)
[2017-02-12 09:25] VITALS: BP 94/52
[2017-02-12] MEDS: ASPIRIN 325 MG TAB PO SCH (09:33)
[2017-02-12] MEDS: PANTOPRAZOLE SOD 40 MG DELAYED RELEASE TAB PO SCH (09:33)
[2017-02-12] MEDS: DOCUSATE SODIUM 100 MG CAP PO SCH ×2 (09:33→20:54)
[2017-02-12] MEDS: SERTRALINE HCL 50 MG TAB PO SCH (09:37)
--- NOTE | 2017-02-12 10:32 | HHI.PYPN ---
Subjective Remarks Patient seen in his room with nurse Dori and medical assistant cardiology faviola, patient continues to isolate somewhat continues markedly depressed with decreased range intensity of his affect moderate psychomotor retardation. He is vague about the his willingness to take the suicide pill. He states he did have a good meeting with his daughter and his older brother who came in from up the [facility]. He is compliant with his medications. States he might feel slightly better today than when he was admitted Chief Complaint: patient depressed with homicidal and suicidal ideation Review of Systems Except as stated in HPI: all other systems reviewed are Neg Mental Status Examination Appearance: Appropriate Consciousness: Alert Orientation: x4 Motor Activity: Normal gait Speech: Hesitant (slightly), Slow Language: Adequate Fund of Knowledge: Adequate Attention and Concentration: Adequate Memory: Unremarkable Mood: Angry (subtle), Sad Affect: Other (restricted and guarded) Thought Process & Associations: Intact Thought Content: Bizarre thinking Hallucination Type: None Delusion Type: None Suicidal Ideation: Yes Suicidal Plan: Yes (patient quite vague) Suicidal Intention: Yes (vague) Homicidal Ideation: Yes Homicidal Plan: Yes (vague) Homicidal Intention: Yes (vague) Insight: Poor Judgment: Poor Results Vitals/IOs Vital Signs Date Time Temp Pulse Resp B/P (MAP) Pulse Ox O2 Delivery O2 Flow Rate FiO2 02/12/17 09:25 94/52 (66) 02/12/17 05:57 97.6 79 16 99 Intake and Output 02/12/17 02/12/17 02/13/17 08:00 16:00 00:00 Intake Total 240 ml Balance 240 ml Assessment & Plan Problem List: (1) Major depressive disorder, single episode, severe with psychotic features ICD Codes: F32.3 - Major depressive disorder, single episode, severe with psychotic features Assessment & Plan Estimated LOS: days patient remains significantly depressed with decreased range intensity was affect. He is vague about suicidality. He is compliant with his medication Justification for Cont. Inpt. At this time patient decompensate and placed in a lower level of care Discharge Planning Consider possible return to family home when he is stabilized. With the may be some concern about that considering his behavior fascination with knives and blunt objects Request HC Surrog/Guard Advoc?: No Tone Johansen MD Feb 12, 2017 10:32
--- NOTE | 2017-02-12 17:36 | HHI.PR ---
Subjective Remarks Now bowel movement yet. Will try magnesium citrate tomorrow morning, if not bowel movements by then. No new complaints from patient. Objective Vital Signs Date Time Temp Pulse Resp B/P (MAP) Pulse Ox O2 Delivery O2 Flow Rate FiO2 02/12/17 09:25 94/52 (66) 02/12/17 05:57 97.6 79 16 90/50 (63) 99 02/11/17 18:52 97.7 74 18 127/75 (92) 99 I/O 02/11/17 02/11/17 02/11/17 02/12/17 02/12/17 02/12/17 07:02 15:02 23:02 07:02 15:02 23:02 Intake Total 840 ml 720 ml 240 ml Balance 840 ml 720 ml 240 ml Intake Oral 840 ml 720 ml 240 ml # Voids 4 1 1 Objective Remarks GENERAL: NAD, A&Ox3 SKIN: Warm and dry. HEAD: Normocephalic. EYES: No scleral icterus. No injection or drainage. NECK: Supple, trachea midline. No JVD or lymphadenopathy. CARDIOVASCULAR: Regular rate and rhythm without murmurs, gallops, or rubs. RESPIRATORY: Breath sounds equal bilaterally. No accessory muscle use. GASTROINTESTINAL: Abdomen soft, non-tender, nondistended. MUSCULOSKELETAL: No cyanosis, or edema. BACK: Nontender without obvious deformity. No CVA tenderness. A/P Problem List: (1) Constipation ICD Code: K59.00 - Constipation, unspecified (2) Hypertension ICD Code: I10 - Essential (primary) hypertension (3) Major depressive disorder, single episode, severe with psychotic features ICD Code: F32.3 - Major depressive disorder, single episode, severe with psychotic features Assessment and Plan Assessment and plan 72 year-old male admitted secondary to major depression with complaint of constipation. Magnesium citrate in AM if not benefit with current treatment overnight. Major depression Continue management per psychiatry Constipation Begin twice a day Colace Twice a day laxatives as needed Monitor for bowel movements Upgrade to magnesium citrate tomorrow, if no BM Hypertension Well-controlled No change to baseline treatment Continue to monitor blood pressures DVT prophylaxis Patient is ambulatory, no treatment needed Solomon Jhaveri MD Feb 12, 2017 17:36
[2017-02-12 17:47] VITALS: BP 115/66; PULSE 76; RESP 18; TEMP 98.1; O2SAT 97
[2017-02-12] MEDS: QUEtiapine FUMARATE 100 MG TAB PO SCH (20:54)
[2017-02-13 05:19] VITALS: BP 104/61; PULSE 72; RESP 18; TEMP 97.7; O2SAT 97
[2017-02-13] MEDS: LISINOPRIL 20 MG TAB PO SCH (08:54)
[2017-02-13] MEDS: METOPROLOL TARTRATE 25 MG TAB PO SCH ×2 (08:54→20:38)
[2017-02-13 08:55] VITALS: BP 90/50
[2017-02-13] MEDS ORDERED: MAGNESIUM CITRATE SOLN 300 ML BTL PO ONE (09:00)
[2017-02-13] MEDS: amLODIPine BESYLATE 5 MG TAB PO SCH (09:00)
[2017-02-13] MEDS: ASPIRIN 325 MG TAB PO SCH (09:59)
[2017-02-13] MEDS: DOCUSATE SODIUM 100 MG CAP PO SCH ×2 (10:01→20:38)
[2017-02-13] MEDS: CARVEDILOL 3.125 MG TAB PO SCH ×2 (10:01→20:38)
[2017-02-13] MEDS: PANTOPRAZOLE SOD 40 MG DELAYED RELEASE TAB PO SCH (10:02)
[2017-02-13] MEDS: SERTRALINE HCL 50 MG TAB PO SCH (10:03)
--- NOTE | 2017-02-13 12:44 | HHI.PR ---
Subjective Remarks No bowel movement has occurred yet. No bowel movement with upgrade to magnesium citrate this morning. Patient has abdominal pain/cramping, states he feels as if he needs to go the bathroom but can't. Objective Vital Signs Date Time Temp Pulse Resp B/P (MAP) Pulse Ox O2 Delivery O2 Flow Rate FiO2 02/13/17 08:55 90/50 (63) 02/13/17 05:19 97.7 72 18 104/61 (75) 97 02/12/17 17:47 98.1 76 18 115/66 (82) 97 I/O 02/12/17 02/12/17 02/12/17 02/13/17 02/13/17 02/13/17 07:00 15:00 23:00 07:00 15:00 23:00 Intake Total 240 ml 360 ml Balance 240 ml 360 ml Intake Oral 240 ml 360 ml # Voids 1 Objective Remarks GENERAL: NAD, A&Ox3 SKIN: Warm and dry. HEAD: Normocephalic. EYES: No scleral icterus. No injection or drainage. NECK: Supple, trachea midline. No JVD or lymphadenopathy. CARDIOVASCULAR: Regular rate and rhythm without murmurs, gallops, or rubs. RESPIRATORY: Breath sounds equal bilaterally. No accessory muscle use. GASTROINTESTINAL: Abdomen soft, non-tender, nondistended. MUSCULOSKELETAL: No cyanosis, or edema. BACK: Nontender without obvious deformity. No CVA tenderness. A/P Problem List: (1) Constipation ICD Code: K59.00 - Constipation, unspecified (2) Hypertension ICD Code: I10 - Essential (primary) hypertension (3) Major depressive disorder, single episode, severe with psychotic features ICD Code: F32.3 - Major depressive disorder, single episode, severe with psychotic features Assessment and Plan Assessment and plan 72 year-old male admitted secondary to major depression with complaint of constipation. Magnesium citrate provided this morning and no bowel movement has occurred. We will upgrade with suppository followed by Fleet enema. Major depression Continue management per psychiatry Constipation Begin twice a day Colace Twice a day laxatives as needed Monitor for bowel movements Failed magnesium citrate Glycerin suppository today Fleet enema today Consider imaging and/or GI consult if he continues to fail treatment therapies Hypertension Well-controlled No change to baseline treatment Continue to monitor blood pressures DVT prophylaxis Patient is ambulatory, no treatment needed Solomon Jhaveri MD Feb 13, 2017 12:44
[2017-02-13] MEDS ORDERED: GLYCERIN ADULT 2 GM SUPP RECTAL ONE (12:45)
--- NOTE | 2017-02-13 14:30 | HHI.PYPN ---
Subjective Chief Complaint: patient depressed with homicidal and suicidal ideation Remarks Met with patient's brother and patient in my office this morning. Patient has a loving caring concerned brother and sister. They're hoping for the patient to return to the brothers home in [place] once he is further stabilized. Brothers willing to come [place] next week to help accomplish this. His sister accompanied with. Patient was in the office continue depressed though there there is some discomfort on his part leading to being constipated not having a bowel movement for a week. However there is also some perhaps mild histrionics on his part. He continues to be depressed and somewhat labile. It appears his is being cared for by her daughter, will be placed in a rehabilitation facility tomorrow. After the meeting patient was given fleets enema with good results. Patient seen after the enema, he is somewhat calmer with marked less discomfort. For now continue treatment no change Review of Systems Gastrointestinal: COMPLAINS OF: Constipation Except as stated in HPI: all other systems reviewed are Neg Mental Status Examination Appearance: Appropriate Consciousness: Alert Orientation: x4 Motor Activity: Normal gait Speech: Hesitant (slightly), Slow Language: Adequate Fund of Knowledge: Adequate Attention and Concentration: Adequate Memory: Unremarkable Mood: Angry (subtle), Sad Affect: Other (restricted and guarded) Thought Process & Associations: Intact Thought Content: Bizarre thinking Hallucination Type: None Delusion Type: None Suicidal Ideation: Yes Suicidal Plan: Yes (patient quite vague) Suicidal Intention: Yes (vague) Homicidal Ideation: Yes Homicidal Plan: Yes (vague) Homicidal Intention: Yes (vague) Insight: Poor Judgment: Poor Results Vitals/IOs Vital Signs Date Time Temp Pulse Resp B/P (MAP) Pulse Ox O2 Delivery O2 Flow Rate FiO2 02/13/17 08:55 90/50 (63) 02/13/17 05:19 97.7 72 18 97 Intake and Output 02/13/17 02/13/17 02/14/17 08:00 16:00 00:00 Intake Total 360 ml Balance 360 ml Assessment & Plan Problem List: (1) Major depressive disorder, single episode, severe with psychotic features ICD Codes: F32.3 - Major depressive disorder, single episode, severe with psychotic features Assessment & Plan Estimated LOS: days patient continues depressed though he is somewhat vague about suicidality. It appears willing to cooperate with plans being made by his brother and sister relocates [place] with his brother for now continue medication no change Justification for Cont. Inpt. With this time patient will decompensate and placed in the lower level of care Discharge Planning We continue to work on coordinating patient's moving to her knowledge brother perhaps next week as he recovers Request HC Surrog/Guard Advoc?: No Tone Johansen MD Feb 13, 2017 14:30
[2017-02-13] MEDS ORDERED: SOD PHOSPHATE/SOD BIPHOSPHATE (ADULT) ENEMA 133ML RECTAL ONE (15:00)
[2017-02-13 16:22] VITALS: BP 119/69; PULSE 87; RESP 17; TEMP 98.7; O2SAT 96
[2017-02-13] MEDS: QUEtiapine FUMARATE 100 MG TAB PO SCH (20:38)
[2017-02-14 06:16] VITALS: BP 110/65; PULSE 68; RESP 16; TEMP 98.1; O2SAT 95
[2017-02-14] MEDS: CARVEDILOL 3.125 MG TAB PO SCH ×2 (09:00→21:07)
[2017-02-14] MEDS: amLODIPine BESYLATE 5 MG TAB PO SCH (09:00)
[2017-02-14] MEDS: LISINOPRIL 20 MG TAB PO SCH (09:00)
[2017-02-14] MEDS: DOCUSATE SODIUM 100 MG CAP PO SCH ×2 (09:00→21:07)
[2017-02-14] MEDS: METOPROLOL TARTRATE 25 MG TAB PO SCH ×2 (09:00→21:07)
[2017-02-14] MEDS: PANTOPRAZOLE SOD 40 MG DELAYED RELEASE TAB PO SCH (09:00)
[2017-02-14] MEDS: ASPIRIN 325 MG TAB PO SCH (09:01)
[2017-02-14] MEDS: SERTRALINE HCL 50 MG TAB PO SCH (09:01)
--- NOTE | 2017-02-14 10:45 | HHI.PYPN ---
Subjective Chief Complaint: patient depressed with homicidal and suicidal ideation Remarks Patient seen in his room with nursing Nickolas and medical studentbeck, patient continues depressed though he is denying suicidality today. He still somewhat psychomotor retarded but his affect is slightly improved. 8 continues to be willing to consider the relocation to [place] with his family. For now will increase Zoloft to 50 mg daily continue other medication Review of Systems Except as stated in HPI: all other systems reviewed are Neg Mental Status Examination Appearance: Appropriate Consciousness: Alert Orientation: x4 Motor Activity: Normal gait Speech: Hesitant (slightly), Slow Language: Adequate Fund of Knowledge: Adequate Attention and Concentration: Adequate Memory: Unremarkable Mood: Angry (subtle), Sad Affect: Other (restricted and guarded) Thought Process & Associations: Intact Thought Content: Bizarre thinking Hallucination Type: None Delusion Type: None Suicidal Ideation: Yes Suicidal Plan: Yes (patient quite vague) Suicidal Intention: Yes (vague) Homicidal Ideation: Yes Homicidal Plan: Yes (vague) Homicidal Intention: Yes (vague) Insight: Poor Judgment: Poor Results Vitals/IOs Vital Signs Date Time Temp Pulse Resp B/P (MAP) Pulse Ox O2 Delivery O2 Flow Rate FiO2 02/14/17 06:16 98.1 68 16 110/65 (80) 95 Assessment & Plan Problem List: (1) Major depressive disorder, single episode, severe with psychotic features ICD Codes: F32.3 - Major depressive disorder, single episode, severe with psychotic features Assessment & Plan Estimated LOS: days patient continues depressed with psychomotor retardation though it is resolving somewhat. He does denies suicidality at this time. For now will increase Zoloft to 50 mg daily continue other medication Justification for Cont. Inpt. At this time patient decompensated placed in a lower level of care Discharge Planning Plan on relocating to [place] with family perhaps next week Request HC Surrog/Guard Advoc?: No Tone Johansen MD Feb 14, 2017 10:45
--- NOTE | 2017-02-14 11:00 | HHI.PR ---
Subjective Remarks states had a good BM yesterday evening no abdominal pain chronic constipation by history per patient- had a colonoscopy doen withinm 5 years - reportedly normal per patient Objective Vitals Vital Signs Date Time Temp Pulse Resp B/P (MAP) Pulse Ox O2 Delivery O2 Flow Rate FiO2 02/14/17 06:16 98.1 68 16 110/65 (80) 95 02/13/17 16:22 98.7 87 17 119/69 (86) 96 I/O 02/13/17 02/13/17 02/13/17 02/14/17 02/14/17 02/14/17 07:00 15:00 23:00 07:00 15:00 23:00 Intake Total 720 ml Balance 720 ml Intake Oral 720 ml # Bowel Movements 1 Objective Remarks awake and alert, no distress lungs clear abdomen soft, nontender extremities no edema gait steady A/P Problem List: (1) Hypertension ICD Code: I10 - Essential (primary) hypertension (2) Major depressive disorder, single episode, severe with psychotic features ICD Code: F32.3 - Major depressive disorder, single episode, severe with psychotic features Assessment and Plan 72 year-old male admitted secondary to major depression with complaint of constipation. Magnesium citrate provided this morning and no bowel movement has occurred. We will upgrade with suppository followed by Fleet enema. Major depression Continue management per psychiatry Constipation- chronic on Colace bid + BM- 02/13 add fibercon daily benign abdominal exam Hypertension Well-controlled No change to baseline treatment Continue to monitor blood pressures paitent up and ambualting high fibre diet Andrae Padgett MD Feb 14, 2017 11:00
[2017-02-14] MEDS: CALCIUM POLYCARBOPHIL 625 MG TAB PO SCH (13:00)
[2017-02-14 17:50] VITALS: BP 103/59; PULSE 55; RESP 16; TEMP 97.6; O2SAT 99
[2017-02-14] MEDS: QUEtiapine FUMARATE 100 MG TAB PO SCH (21:07)
[2017-02-14] MEDS: diphenhydrAMINE HCL 50 MG CAP PO PRN (21:07)
[2017-02-15 06:21] VITALS: BP 109/61; PULSE 71; RESP 18; TEMP 97.5; O2SAT 98
[2017-02-15] MEDS: PANTOPRAZOLE SOD 40 MG DELAYED RELEASE TAB PO SCH (09:01)
[2017-02-15] MEDS: ASPIRIN 325 MG TAB PO SCH (09:02)
[2017-02-15] MEDS: amLODIPine BESYLATE 5 MG TAB PO SCH (09:03)
[2017-02-15] MEDS: SERTRALINE HCL 50 MG TAB PO SCH (09:03)
[2017-02-15] MEDS: METOPROLOL TARTRATE 25 MG TAB PO SCH ×2 (09:03→21:55)
[2017-02-15] MEDS: CALCIUM POLYCARBOPHIL 625 MG TAB PO SCH (09:03)
[2017-02-15] MEDS: DOCUSATE SODIUM 100 MG CAP PO SCH ×2 (09:03→21:55)
[2017-02-15] MEDS: LISINOPRIL 20 MG TAB PO SCH (09:04)
[2017-02-15] MEDS: CARVEDILOL 3.125 MG TAB PO SCH ×2 (09:04→21:55)
--- NOTE | 2017-02-15 14:20 | HHI.PYPN ---
Subjective Chief Complaint: patient depressed with homicidal and suicidal ideation Remarks Pt seen and discussed with staff. He has been more talkative and came out of his room for meals today. He is somewhat confused and told RN that his who is was living in SNF. No SI/HI Mental Status Examination Appearance: Appropriate Consciousness: Alert Orientation: x4 Motor Activity: Normal gait Speech: Unremarkable Language: Adequate Fund of Knowledge: Adequate Attention and Concentration: Adequate Memory: Unremarkable Mood: Sad Affect: Flat Thought Process & Associations: Intact Thought Content: Bizarre thinking Hallucination Type: None Delusion Type: None Suicidal Ideation: Yes Suicidal Plan: Yes (patient quite vague) Suicidal Intention: Yes (vague) Homicidal Ideation: Yes Homicidal Plan: Yes (vague) Homicidal Intention: Yes (vague) Insight: Poor Judgment: Poor Results Vitals/IOs Vital Signs Date Time Temp Pulse Resp B/P (MAP) Pulse Ox O2 Delivery O2 Flow Rate FiO2 02/15/17 06:21 97.5 71 18 109/61 (77) 98 Intake and Output 02/15/17 02/15/17 02/16/17 08:00 16:00 00:00 Intake Total 360 ml Balance 360 ml Assessment & Plan Problem List: (1) Major depressive disorder, single episode, severe with psychotic features ICD Codes: F32.3 - Major depressive disorder, single episode, severe with psychotic features Assessment & Plan Continue current tx plan. Estimated LOS: days Justification for Cont. Inpt. risk of decompensation Request HC Surrog/Guard Advoc?: Concepcion Perkins MD Feb 15, 2017 14:20
--- NOTE | 2017-02-15 15:32 | HHI.PR ---
Subjective Remarks patient very interactive on exam, opening up more denies any pain Objective Vitals Vital Signs Date Time Temp Pulse Resp B/P (MAP) Pulse Ox O2 Delivery O2 Flow Rate FiO2 02/15/17 06:21 97.5 71 18 109/61 (77) 98 02/14/17 17:50 97.6 55 16 103/59 (74) 99 I/O 02/14/17 02/14/17 02/14/17 02/15/17 02/15/17 02/15/17 07:00 15:00 23:00 07:00 15:00 23:00 Intake Total 180 ml 360 ml Balance 180 ml 360 ml Intake Oral 180 ml 360 ml Objective Remarks awake and alert, no distress lungs clear abdomen soft, nontender extremities no edema gait steady A/P Problem List: (1) Hypertension ICD Code: I10 - Essential (primary) hypertension (2) Major depressive disorder, single episode, severe with psychotic features ICD Code: F32.3 - Major depressive disorder, single episode, severe with psychotic features Assessment and Plan 72 year-old male admitted secondary to major depression with complaint of constipation. Magnesium citrate provided this morning and no bowel movement has occurred. We will upgrade with suppository followed by Fleet enema. Major depression Continue management per psychiatry Constipation- chronic on Colace bid + BM- 02/13 fibercon daily benign abdominal exam Hypertension Well-controlled No change to baseline treatment- on CCB and BB Continue to monitor blood pressures patient up and ambulating high fibre diet Medically stable [facility] sings off. Please reconsult if needed Andrae Padgett MD Feb 15, 2017 15:32
[2017-02-15 18:15] VITALS: BP 147/94; PULSE 74; RESP 18; TEMP 97.6; O2SAT 96
[2017-02-15] MEDS: QUEtiapine FUMARATE 100 MG TAB PO SCH (21:55)
[2017-02-15] MEDS: diphenhydrAMINE HCL 50 MG CAP PO PRN (21:55)
[2017-02-16 06:20] VITALS: BP 112/67; PULSE 66; RESP 18; TEMP 97.5; O2SAT 99
[2017-02-16] MEDS: ASPIRIN 325 MG TAB PO SCH (08:38)
[2017-02-16] MEDS: SERTRALINE HCL 50 MG TAB PO SCH (08:38)
[2017-02-16] MEDS: CALCIUM POLYCARBOPHIL 625 MG TAB PO SCH (08:38)
[2017-02-16] MEDS: LISINOPRIL 20 MG TAB PO SCH (08:39)
[2017-02-16] MEDS: CARVEDILOL 3.125 MG TAB PO SCH ×3 (08:39→21:27)
[2017-02-16] MEDS: DOCUSATE SODIUM 100 MG CAP PO SCH ×2 (08:39→21:27)
[2017-02-16] MEDS: amLODIPine BESYLATE 5 MG TAB PO SCH (08:40)
[2017-02-16] MEDS: METOPROLOL TARTRATE 25 MG TAB PO SCH ×3 (08:40→21:27)
[2017-02-16] MEDS: PANTOPRAZOLE SOD 40 MG DELAYED RELEASE TAB PO SCH (08:41)
--- NOTE | 2017-02-16 15:28 | HHI.PYPN ---
Subjective Chief Complaint: patient depressed with homicidal and suicidal ideation Remarks Pt seen and discussed with staff. RN reports that pt was insisting that he be discharged so he can go take care of his . He states that he blames himself for his 's stroke. He has been depressed and isolating to his room. He is compliant with medications Mental Status Examination Appearance: Appropriate Consciousness: Alert Orientation: x4 Motor Activity: Normal gait Speech: Unremarkable Language: Adequate Fund of Knowledge: Adequate Attention and Concentration: Adequate Memory: Unremarkable Mood: Sad Affect: Flat Thought Process & Associations: Intact Thought Content: Bizarre thinking Hallucination Type: None Delusion Type: None Suicidal Ideation: Yes Suicidal Plan: Yes (patient quite vague) Suicidal Intention: Yes (vague) Homicidal Ideation: Yes Homicidal Plan: Yes (vague) Homicidal Intention: Yes (vague) Insight: Poor Judgment: Poor Results Vitals/IOs Vital Signs Date Time Temp Pulse Resp B/P (MAP) Pulse Ox O2 Delivery O2 Flow Rate FiO2 02/16/17 06:20 97.5 66 18 112/67 (82) 99 Assessment & Plan Problem List: (1) Major depressive disorder, single episode, severe with psychotic features ICD Codes: F32.3 - Major depressive disorder, single episode, severe with psychotic features Assessment & Plan Continue current tx plan. Estimated LOS: days Justification for Cont. Inpt. impairments in self care Request HC Surrog/Guard Advoc?: Concepcion Perkins MD Feb 16, 2017 15:28
[2017-02-16 16:55] VITALS: BP 106/60; PULSE 66; RESP 18; TEMP 97.5; O2SAT 99
[2017-02-16] MEDS: QUEtiapine FUMARATE 100 MG TAB PO SCH (21:27)
[2017-02-16] MEDS: diphenhydrAMINE HCL 50 MG CAP PO PRN (21:27)
[2017-02-17 05:35] VITALS: BP 120/69; PULSE 69; RESP 17; TEMP 97.5; O2SAT 97
[2017-02-17] MEDS: PANTOPRAZOLE SOD 40 MG DELAYED RELEASE TAB PO SCH (09:23)
[2017-02-17] MEDS: METOPROLOL TARTRATE 25 MG TAB PO SCH ×2 (09:23→21:11)
[2017-02-17] MEDS: LISINOPRIL 20 MG TAB PO SCH (09:23)
[2017-02-17] MEDS: amLODIPine BESYLATE 5 MG TAB PO SCH (09:23)
[2017-02-17] MEDS: CALCIUM POLYCARBOPHIL 625 MG TAB PO SCH (09:23)
[2017-02-17] MEDS: ASPIRIN 325 MG TAB PO SCH (09:24)
[2017-02-17] MEDS: SERTRALINE HCL 50 MG TAB PO SCH (09:24)
[2017-02-17] MEDS: DOCUSATE SODIUM 100 MG CAP PO SCH ×2 (09:24→21:11)
[2017-02-17] MEDS: CARVEDILOL 3.125 MG TAB PO SCH ×2 (09:24→21:00)
--- NOTE | 2017-02-17 14:09 | HHI.PYPN ---
Subjective Chief Complaint: patient depressed with homicidal and suicidal ideation Remarks Patient seen in his room sitting and that his bed patient seen with medical student beck, chart review, patient compliant medications. Patient showing some increase affect better eye contact. There is still complains of depression with some vague hopelessness. Though he did show some better eye contact. He continues to improve of the plan to return to [place] with his brother. Anticipated brother returning here within the next 1-2 days. Consider discharge after that. Patient denies suicidality homicidality at this time denies any specific auditory hallucinations but investigated times a week hears some mumbling type noises in his head for now continue treatment no change Review of Systems Except as stated in HPI: all other systems reviewed are Neg Mental Status Examination Appearance: Appropriate Consciousness: Alert Orientation: x4 Motor Activity: Normal gait Speech: Unremarkable Language: Adequate Fund of Knowledge: Adequate Attention and Concentration: Adequate Memory: Unremarkable Mood: Sad Affect: Flat Thought Process & Associations: Intact Thought Content: Bizarre thinking Hallucination Type: None Delusion Type: None Suicidal Ideation: Yes Suicidal Plan: Yes (patient quite vague) Suicidal Intention: Yes (vague) Homicidal Ideation: Yes Homicidal Plan: Yes (vague) Homicidal Intention: Yes (vague) Insight: Poor Judgment: Poor Results Vitals/IOs Vital Signs Date Time Temp Pulse Resp B/P (MAP) Pulse Ox O2 Delivery O2 Flow Rate FiO2 02/17/17 05:35 97.5 69 17 120/69 (86) 97 Intake and Output 02/17/17 02/17/17 02/18/17 08:00 16:00 00:00 Intake Total 360 ml Balance 360 ml Assessment & Plan Problem List: (1) Major depressive disorder, single episode, severe with psychotic features ICD Codes: F32.3 - Major depressive disorder, single episode, severe with psychotic features Assessment & Plan Estimated LOS: days patient continues depressed that appears to be softening, is affect appears to be improving also. Compliant medication. For now continue treatment. Awaiting word from patient's brother Justification for Cont. Inpt. At this time patient will decompensate if placed a lower level of care Discharge Planning Plan is for patient to return to [place] with his brother and sister Request HC Surrog/Guard Advoc?: No Tone Johansen MD Feb 17, 2017 14:09
[2017-02-17 15:37] VITALS: BP 112/75; PULSE 70; RESP 18; TEMP 97.7; O2SAT 98
[2017-02-17] MEDS: QUEtiapine FUMARATE 100 MG TAB PO SCH (21:11)
[2017-02-17] MEDS: diphenhydrAMINE HCL 50 MG CAP PO PRN (21:11)
[2017-02-18 05:37] VITALS: BP 126/71; PULSE 60; RESP 18; TEMP 97.5; O2SAT 98
[2017-02-18] MEDS: METOPROLOL TARTRATE 25 MG TAB PO SCH ×2 (09:22→21:07)
[2017-02-18] MEDS: CARVEDILOL 3.125 MG TAB PO SCH ×2 (09:22→21:07)
[2017-02-18] MEDS: DOCUSATE SODIUM 100 MG CAP PO SCH ×2 (09:22→21:06)
[2017-02-18] MEDS: PANTOPRAZOLE SOD 40 MG DELAYED RELEASE TAB PO SCH (09:23)
[2017-02-18] MEDS: LISINOPRIL 20 MG TAB PO SCH (09:23)
[2017-02-18] MEDS: CALCIUM POLYCARBOPHIL 625 MG TAB PO SCH (09:23)
[2017-02-18] MEDS: amLODIPine BESYLATE 5 MG TAB PO SCH (09:24)
[2017-02-18] MEDS: SERTRALINE HCL 50 MG TAB PO SCH (09:26)
[2017-02-18] MEDS: ASPIRIN 325 MG TAB PO SCH (09:26)
--- NOTE | 2017-02-18 11:37 | HHI.PYPN ---
Subjective Chief Complaint: patient depressed with homicidal and suicidal ideation Remarks Patient seen in his room with medical students helder and beck, patient continues depressed though denying suicidality homicidality voices or visions. Is still somewhat psychomotor retarded, continues to complain of constipation. States he is basically not had a bowel movement since his fleets enema a few days ago. Continues to be willing to go to [place] with his brother when his brother arrives back down here. For now will increase Zoloft 100 mg daily Review of Systems Except as stated in HPI: all other systems reviewed are Neg Mental Status Examination Appearance: Appropriate Consciousness: Alert Orientation: x4 Motor Activity: Normal gait Speech: Unremarkable Language: Adequate Fund of Knowledge: Adequate Attention and Concentration: Adequate Memory: Unremarkable Mood: Sad Affect: Flat Thought Process & Associations: Intact Thought Content: Bizarre thinking Hallucination Type: None Delusion Type: None Suicidal Ideation: Yes Suicidal Plan: Yes (patient quite vague) Suicidal Intention: Yes (vague) Homicidal Ideation: Yes Homicidal Plan: Yes (vague) Homicidal Intention: Yes (vague) Insight: Poor Judgment: Poor Results Vitals/IOs Vital Signs Date Time Temp Pulse Resp B/P (MAP) Pulse Ox O2 Delivery O2 Flow Rate FiO2 02/18/17 05:37 97.5 60 18 126/71 (89) 98 Assessment & Plan Problem List: (1) Major depressive disorder, single episode, severe with psychotic features ICD Codes: F32.3 - Major depressive disorder, single episode, severe with psychotic features Assessment & Plan Estimated LOS: days patient continues depressed though suicidality has resolved. Continue somewhat psychomotor retarded. Continues complaining of constipation. Will increase Zoloft to 100 mg daily, will also add Michelle-Colace when necessary Justification for Cont. Inpt. At this time patient decompensate placed a lower level of care Discharge Planning we continue to await word from patient's brothew Request HC Surrog/Guard Advoc?: No Tone Johansen MD Feb 18, 2017 11:37
[2017-02-18] MEDS ORDERED: DOCUSATE SODIUM 50 MG/SENNA 8.6 MG TAB PO PRN (11:45)
--- NOTE | 2017-02-18 14:07 | PD.TTN ---
Patient Problems 1. Discharge planning 2. Medication compliance 3. Knowledge deficit 4. Lack of coping skills Progress Toward Goals Provider Input: Patient has been anxious on unit but is tolerating medications with no side effects. Patient is stablized on medications. Nurse(s) Input: Patient has been compliant with medication and no behavioral issues on the unit. Patient does express voices but does not eleborate. Psychiatric Counselors Present: LEILA Rosario Psych Therapist Input: Patient is coming from out of town to take caer of patient and bring him back to [place]. Patient is very discharged focused. Group Spec/RT/OT/KING Present: FERNANDO Vega Group Spec/RT/OT/KING Input: Patient attends most groups with appropriate behavior. Rhonda Johnson [facility] Feb 18, 2017 14:07
[2017-02-18 16:11] VITALS: BP 99/56; PULSE 68; RESP 18; TEMP 98.1; O2SAT 98
[2017-02-18] MEDS: QUEtiapine FUMARATE 100 MG TAB PO SCH (21:07)
[2017-02-18 22:35] VITALS: BP 118/72; PULSE 72; RESP 18; TEMP 97.9; O2SAT 97
[2017-02-19 06:20] VITALS: BP 101/69; PULSE 70; RESP 16; TEMP 97.7; O2SAT 97
[2017-02-19] MEDS: CARVEDILOL 3.125 MG TAB PO SCH (08:17)
[2017-02-19] MEDS: CALCIUM POLYCARBOPHIL 625 MG TAB PO SCH (08:17)
[2017-02-19] MEDS: METOPROLOL TARTRATE 25 MG TAB PO SCH (08:18)
[2017-02-19] MEDS: DOCUSATE SODIUM 100 MG CAP PO SCH (08:18)
[2017-02-19] MEDS: PANTOPRAZOLE SOD 40 MG DELAYED RELEASE TAB PO SCH (08:18)
[2017-02-19] MEDS: LISINOPRIL 20 MG TAB PO SCH (08:18)
[2017-02-19] MEDS: ASPIRIN 325 MG TAB PO SCH (08:18)
[2017-02-19] MEDS: amLODIPine BESYLATE 5 MG TAB PO SCH (08:18)
[2017-02-19] MEDS ORDERED: SERTRALINE HCL 50 MG TAB PO SCH (09:00)
[2017-02-19] MEDS ORDERED: DOCU1CAP39 PO (13:03)
[2017-02-19] MEDS ORDERED: METO25TA3 PO (13:03)
[2017-02-19] MEDS ORDERED: LISI-515 PO (13:03)
[2017-02-19] MEDS ORDERED: PANT40TA3 PO (13:03)
[2017-02-19] MEDS ORDERED: AMLO5 PO (13:03)
[2017-02-19] MEDS ORDERED: FIBE625T PO (13:03)
[2017-02-19] MEDS ORDERED: QUET1TAB8 PO (13:03)
[2017-02-19] MEDS ORDERED: ZOLO100T PO (13:03)
[2017-02-19] MEDS ORDERED: CARV3.125 PO (13:03)
[2017-02-19] MEDS ORDERED: ASPI325T PO (13:03)
--- NOTE | 2017-02-19 13:15 | HHI.DS ---
Psychiatry Discharge Summary Inpatient Psychiatric care?: Yes Advance Directive: No Reason Not Provided: patient declined at this time Mental Health AdvanceDirective: No (patient declined at this time) Health Care Proxy: No (patient declined at this time) Admission Admission Date Feb 10, 2017 at 22:50 Admission Diagnosis: (1) Major depressive disorder, single episode, severe with psychotic features ICD Code: F32.3 - Major depressive disorder, single episode, severe with psychotic features Brief History Patient is a 72-year-old white male known to me from prior hospitalization here at [facility]. Patient was hospitalized 02/03/17 through 02/06/17 under . The depressive symptoms at that time were related to the stress of his caring for his who has significant issues with cancer and relationship with his daughter. Patient comes to this time under [place] act signed by [facility] dated 02/10/17 at 1517 hrs. that document reviewed. It is essentially stating that the police radio dispatcher make contact with Jonathan Goldberg and his daughter Maegan. When speaking to Maegan she advised me that her father was experiencing severe depression in the last few weeks and appeared to have a deteriorating mental status. Maegan also stated that her father Jonathan has made several statements about wanting to kill people. Maegan also stated that she has observed Jonathan taking large knives out of the kitchen and when confronted about the knives see attempts to hide them places him back in the kitchen. On 02/10/17 Maegan observed Jonathan with a private bar in his hands which was wrapped in a towel in the home. When confronted him about the tools he began walking towards her without speaking. When speaking with Jonathan about the incident he did not recall his actions and simply stated "I'm crazy" patient seen screened in the ED. There is no laboratory testing ordered at that time. At the present time patient sitting quietly in his room patient seen with counselor Ayan and nurse Shaista. Patient did recognize me from prior contact. He stated his depression increased with his discharge. And the increasing depression sad mood, but also increased anger and frustration focusing on his and daughter. Also focusing on his hopelessness and helplessness and frustration with the entire situation. He did acknowledge thoughts of harming his family and himself with the knives her with a crowbar. He does acknowledge having is somewhat short tempered as a young adult. He denies any prior suicidal homicidal ideation intent or plan. He is vague about his compliance with medication upon prior discharge. We did discuss medications. We will discontinue his prior psychotropics and offer him Zoloft 25 mg a.m. and Seroquel small doses during the day and is somewhat larger dose at bedtime. We need to contact patient's family to discuss this with them and discuss discharge plans concerning the aggressive nature of his behaviors 02/11/17 Patient is a 72-year-old man, , domiciled with daughter and , past psychiatric history of major depressive disorder, with previous psychiatric admissions, no previous suicide attempts of self-interest behavior was recently discharged from psychiatric unit but was brought into the ER due to continued depression as well as suicidal homicidal ideations toward his family. Patient was found sitting in hospital bed, cooperative interview today although noted to be somewhat guarded. Patient states that he is here back in the hospital because his daughter felt he was becoming dangerous to himself and others. He reports feeling depressed and having acted strangely for the past few weeks referring to him playing with knives and tools, "playing with them like I was going to hurt them". Patient states that he felt angry but could not bring himself to hurt them but did have had these thoughts for the past month. Patient reports significant stressor earlier this year back in August when his suffered a stroke which she became the primary merchandise appraiser. Patient reports the past couple of weeks decreased sleep, energy, concentration, appetite being "on and off", feelings of guilt, feeling depressed along with feeling hopeless and helpless. Patient reports having suicidal ideation since August but worsening recently. Patient states the last time he has was ideations was earlier this morning. Patient reports not having a plan but had thought of methods such as driving off a bridge. Patient reports having a recent discharge from psychiatric unit about one week ago. Patient at this time reports feeling "down" denies any SI or HI at this time but did report having some auditory hallucinations sometimes but did not want to elaborate. Tobacco Use In Past 30 Days: No Tobacco Past 30 Days Alcohol Use: 2-3 Times Per Week Hospital Course Patient's hospital course was notable for patients poor participation in milieu , isolation in his room. There is some somatization focusing on his bowel movements. Though that did improve with medication and treatment. The was a meeting with the patient's brother who drove down here from [place] to visit with the patient. Patient's brother and sister who live in that area are quite concerned and caring related to their brother. They wish for him to relocate, perhaps temporarily, towards the [place] area to be with supportive family. Further mental health care and treatment to be provided in that area. Patient's who suffered a severe stroke is now in a safe rehabilitation placement. Patient showing willingness to go with family up to [place]. He has been compliant with medications has denies suicidality homicidality, voices or visions. However there does remain with him a somewhat histrionic behavior that is consistent even when patient was visiting with his brother. Patient brother said this is been a somewhat chronic type behavior with his brother. In any event patient's brother has returned to town. He is willing to hop picker his brother about 3 PM today) they to return to the [place] area to continue patient's care and to give safe lodging. Patient showing some anticipatory type anxiety related to this. Also may appear somewhat manipulative. He may be becoming somewhat institutionalize. I feel that it is non-therapeutic. I did talk with the patient today he reluctantly acknowledges his need to go with his family. Thus patient will be discharged today to his brother. Of Rx 1 month. The follow-up mental health care in [place] Results Blood Pressure 101 / 69 Vital Signs Date Time Temp Pulse Resp B/P (MAP) Pulse Ox O2 Delivery O2 Flow Rate FiO2 02/19/17 06:20 97.7 70 16 101/69 (80) 97 Please see EMR for full lab results Summary of Procedures None done Pending results at discharge: No Medications # of Antipsychotic meds at D/C: 1 Approp Antipsych med options 1 - Minimum of three failed multiple trials of monotherapy. 2 - Documented plan to taper to monotherapy due to previous use of multiple meds OR cross-taper in progress at D/C. 3 - Documentation of augmentation of Clozapine. 4 - Justification other than those listed in allowable values 1-3, document here : Discharge Discharge Date: Feb 19, 2017 Discharge Diagnosis: (1) Major depressive disorder, single episode, severe with psychotic features Diagnosis: Principal ICD Code: F32.3 - Major depressive disorder, single episode, severe with psychotic features Pt Condition on Discharge: Stable Discharge Disposition: Discharge Home Discharge Instructions Diet Instructions: As Tolerated, No Restrictions Activities you can perform: Regular-No Restrictions Scheduled Appointment: follow-up mental health services in [place] Discharge Time > 30 minutes Mental Status Examination Appearance: Appropriate Consciousness: Alert Orientation: x4 Motor Activity: Normal gait Speech: Unremarkable Language: Adequate Fund of Knowledge: Adequate Attention and Concentration: Adequate Memory: Unremarkable Mood: Sad Affect: Flat Thought Process & Associations: Intact Thought Content: Bizarre thinking Hallucination Type: None Delusion Type: None Suicidal Ideation: Yes Suicidal Plan: Yes (patient quite vague) Suicidal Intention: Yes (vague) Homicidal Ideation: Yes Homicidal Plan: Yes (vague) Homicidal Intention: Yes (vague) Insight: Poor Judgment: Poor Discharge/Advance Care Plan Health Problems: (1) Major depressive disorder, single episode, severe with psychotic features Goals to promote your health * To prevent worsening of your condition and complications * To maintain your health at the optimal level Directions to meet your goals Take your medications as prescribed Follow your dietary instruction Follow activity as directed Keep your appointments as scheduled Take your immunizations and boosters as scheduled If your symptoms worsen call your PCP, if no PCP go to Urgent Care Center or Emergency Room For 18/11 questions related to your inpatient stay or results of tests pending at discharge, please contact Dr. Tone Johansen at Smoking is Dangerous to Your Health. Avoid second hand smoking Tone Johansen MD Feb 19, 2017 13:15
== END 2017-02-19 14:05 | disposition home or self-care (01) | DRG 885 ==
LOC: H250 22:50 → H260 02-12 09:05
PROVIDERS: ADMIT Psychiatry & Neurology Psychiatry; ATTEND Psychiatry & Neurology Psychiatry
DX: F32.3 Major depressive disorder, single episode, severe with psychotic features (principal); R45.850 Homicidal ideations; R45.851 Suicidal ideations; I10 Essential (primary) hypertension; Z96.642 Presence of left artificial hip joint; K59.00 Constipation, unspecified; Z23 Encounter for immunization
CPT/HCPCS: 90686; Q0163; Q2038